=== PATIENT | female | born 1935 | race Caucasian/White ===

== ENCOUNTER 2016-03-13 09:39 | Outpatient (CLI) ==
[2016-03-13 09:48] LABS: BILIRUBIN,URINE Negative (NEGATIVE); KETONES,URINE Negative (NEGATIVE); LEUKOCYTE ESTERASE ,URINE 1+ (NEGATIVE); NITRITE,URINE Negative (NEGATIVE); PH,URINE 5.5 (5-9); PROTEIN,URINE Negative (NEGATIVE); URINE, BLOOD Negative (NEGATIVE)
[2016-03-13 09:49] LABS: ADD URINE MICROSCOPIC YES
[2016-03-13 09:50] LABS: BACTERIA,URINE TRACE (NOT PRESENT)
== END 2016-03-13 09:40 | disposition home or self-care (01) ==
LOC: NONPT 09:39
PROVIDERS: ATTEND Family Medicine
DX: R30.0 Dysuria (principal)
CPT/HCPCS: 81001; 87086

== ENCOUNTER 2016-05-23 10:24 | Outpatient (CLI) | payer OTHER ==
[2016-05-23 14:13] VITALS: BMI 24.8
== END 2016-05-23 10:25 | disposition home or self-care (01) ==
LOC: AMBL 10:24
PROVIDERS: ATTEND Internal Medicine
DX: R50.9 Fever, unspecified (principal); J06.9 Acute upper respiratory infection, unspecified; I10 Essential (primary) hypertension; G20 Parkinson's disease

== ENCOUNTER 2016-05-23 10:38 | Inpatient (IN) ==
[2016-05-23 11:43] LABS: BASOPHILS # (AUTO) 0.1 K/uL (0-0.2); BASOPHILS % (AUTO) 0.5 % (0.0-3.0); EOSINOPHILS # (AUTO) 0.1 K/ul (0.0-0.7); EOSINOPHILS % (AUTO) 1.1 % (0.0-7.0); HEMOGLOBIN 11.6 g/dl (12.0-16.0); IMMATURE GRANULOCYTE % (AUTO) 1.2 % (0.0-5.0); LYMPHOCYTES % (AUTO) 7.8 (10.0-50.0); MEAN CORPUSCULAR HEMOGLOBIN 28.4 pg (27.0-31.0); MEAN CORPUSCULAR HGB CONC 32.2 (31.8-35.4); MONOCYTES # (AUTO) 1.7 K/uL (0.4-2.0); MONOCYTES % (AUTO) 13.5 (0-10); NEUTROPHILS # (AUTO) 9.6 K/ul (2.0-6.9); NEUTROPHILS % (AUTO) 75.9; PLATELET COUNT 300 10^3/uL (140-440); RED BLOOD COUNT 4.09 10^6/ul (4.20-5.40); WHITE BLOOD COUNT 12.62 K/ul (4.6-10.2)
[2016-05-23 12:12] LABS: ABG PCO2 38.7 mmHg (35-45); ABG PH 7.439 (7.35-7.45)
[2016-05-23 12:13] LABS: ABG BASE EXCESS 2 (-2.0-2.0); ABG HCO3 26.2 (22.0-26.0); ABG TCO2 27 (22.0-28.0)
[2016-05-23 12:16] LABS: ALANINE AMINOTRANSFERASE 22 U/L (12-78); ALBUMIN 2.3 g/dL (3.4-5.0); ALBUMIN/GLOBULIN RATIO 0.41; ALKALINE PHOSPHATASE 90 U/L (53-141); ANION GAP 12.7; ASPARTATE AMINO TRANSFERASE 34 U/L (15-37); BILIRUBIN,TOTAL 0.36 mg/dL (0.00-1.20); BLOOD UREA NITROGEN 32 mg/dL (7-18); BUN/CREATININE RATIO 20.12; CALCIUM 9.6 mg/dL (8.2-10.2); CARBON DIOXIDE 27 mmol/L (23-31); CHLORIDE 100 mmol/L (98-107); CREATININE 1.59 mg/dL (0.60-1.30); GLUCOSE 134 mg/dL (82-115); POTASSIUM 4.7 mmol/L (3.5-5.10); SODIUM 135 mmol/L (136-145); TOTAL PROTEIN 7.9 g/dL (5.8-8.1)
[2016-05-23 12:17] LABS: CREATINE KINASE 1440 U/L
[2016-05-23 12:18] LABS: CREATINE KINASE MB 2.2 ng/ml (0.0-3.6)
--- NOTE | 2016-05-23 12:18 | CT ---
EXAM: CT of the abdomen pelvis without contrast History: Abdominal pain. Comparison: Chest CT 05/23/2016 Technique: Multiplanar CT images through the abdomen pelvis were obtained without the administratio n of IV contrast. Findings: Bibasilar lung infiltrates and micronodules. Please see dedicated chest CT done on the day for additional details. Left hip arthroplasty hardware. Osteopenia. Partial sacralization of L5 on the right. Degenerative changes of the lumbar spine. Cholecystectomy clips. No focal liver or splenic lesions. Atherosclerotic vascular calcifications. No peripancreatic inflammation. No renal stones and no hydronephrosis. Unremarkable. No bowel ob struction. Mild bladder distension but no bladder wall thickening. Moderate stool seen within the rectosigmoid colon. No perirectal inflammation. Uterus is not seen. No free air and no ascites. Impression: 1. No acute intra-abdominal or pelvic process. 2. Moderate stool within the rectosigmoid colon. No bowel obstruction. 3. Bibasilar lung infiltrates and micronodules. Please see dedicated chest CT done on the same day for additional details.
--- NOTE | 2016-05-23 12:23 | CT ---
EXAM: CT chest without contrast HISTORY: Cough COMPARISON: None TECHNIQUE: CT chest performed without intravenous contrast. Coronal and sagittal reformatted image s obtained. FINDINGS: Thyroid and thoracic inlet appear normal. Heart normal in size. No pericardial effusion . Evaluation for lymphadenopathy limited without contrast. No lymphadenopathy identified. Esophag us unremarkable. Aorta normal in caliber. Atherosclerosis. There are degenerative changes in the spine. Several vertebral body hemangiomas present. Central airway patent. Bilateral lower airway thickening associated with bilateral scattered centrilobular nodules. Small areas of mucous plugging noted. Additional right basilar consolidation versus less likely atelectasis. Left basilar atelect asis. Granulomatous calcification. Several noncalcified pulmonary nodules. For example. 0.7 nodule left lung base image 46 and 0.5 cm pulmonary nodule right lung image 42. Please refer to separate report CT abdomen pelvis regarding findings in the upper abdomen. IMPRESSION: 1. Bilateral lower airway thickening with small areas of mucous plugging and bilateral centrilobula r nodules. Findings may be due to infectious/inflammatory bronchiolitis or possibly changes of aspi ration. Additionally, there is right basilar pneumonia versus less likely atelectasis. Mild left b asilar atelectasis. 2. Pulmonary nodules measuring up to 0.[address] chest follow-up is recommended in 3-6 months for r eevaluation
[2016-05-23 12:32] LABS: BILIRUBIN,URINE 1+ (NEGATIVE); KETONES,URINE Negative (NEGATIVE); LEUKOCYTE ESTERASE ,URINE Negative (NEGATIVE); NITRITE,URINE Negative (NEGATIVE); PROTEIN,URINE 1+ (NEGATIVE); URINE, BLOOD Trace-intact (NEGATIVE)
[2016-05-23 12:35] LABS: ADD URINE MICROSCOPIC YES
[2016-05-23] MEDS ORDERED: ROCEPHIN 1 GM in SODIUM CHLORIDE 50 ML IV STA (12:43)
--- NOTE | 2016-05-23 12:48 | ED.PDOC ---
General ED Provider: Dr. ZEV GORDON Chief Complaint: Shortness of Air Stated Complaint: short of air Time Seen by Physician: 10:46 Mode of Arrival: Ambulance Information Source: Family, [facility], EMT Exam Limitations: Clinical condition, Dementia Primary Care Provider: NATA LOTT Nursing and Triage Documentation Reviewed and Agree: Yes Respiratory Complaint Exam - Shortness of Air Complaint/Exam Onset/Duration: unknown Symptoms Are: Resolved Timing: Intermittent Initial Severity: Mild Current Severity: Mild Aggravating: Reports: None Alleviating: Reports: Spontaneous resolution Associated Signs and Symptoms: Reports: Cough. Denies: Wheezing, Chest pain with cough, Chest pain, Fever, Chills, Diaphoresis, Nasal congestion, Dizziness , Calf pain, Calf swelling, Edema, Rapid breathing, Labored breathing, Decreased intake History of Healthcare-Acquired Pneumonia: No Pulmonary Embolism Risk Factors: Reports: Bedrest Pseudomonas Risk Factors: Reports: None Tuberculosis Risk Factors: Reports: None Home Oxygen Use: No Recent Stress Test: No Recent Echo/LV Function: No Respiratory Distress: None Stridor Present: No Tracheal Deviation: No Subcutaneous Emphysema: No Accessory Muscle Use: No Retractions: Not Present Diminished Breath Sounds: No Prolonged Expiratory Phase: No Unable to Speak Full Sentences: No Fatigue: No Leg Swelling: No Olivier's Sign Present: No Grunting Respirations: No Kussmaul Respirations: No Differential Diagnoses: CHF, Pulmonary Edema, Pneumonia, Pneumothorax, Pulmonary Embolism, Bronchitis, URI Review of Systems - Review Of Systems Constitutional: Reports: Malaise, Weakness Eyes: Reports: No symptoms Ears, Nose, Mouth, Throat: Reports: No symptoms Respiratory: Reports: Cough Cardiac: Reports: No symptoms GI: Reports: No symptoms : Reports: No symptoms Musculoskeletal: Reports: No symptoms Skin: Reports: No symptoms Neurological: Reports: No symptoms Endocrine: Reports: No symptoms Hematologic/Lymphatic: Reports: No symptoms All Other Systems: Reviewed and Negative Past Medical History - Past Medical History Previously Healthy: No Endocrine: Reports: Hypothyroid Cardiovascular: Reports: Unknown Respiratory: Reports: Unknown Hematological: Reports: Unknown Gastrointestinal: Reports: Unknown Genitourinary: Reports: Unknown Neuro/Psych: Reports: Unknown Musculoskeletal: Reports: Unknown Cancer: Reports: None Last Menstrual Period: na - Surgical History General Surgical History: Reports: Unknown - Family History Family History: Reports: Unknown - Social History Smoking Status: Former smoker Hx Substance Use: Yes Alcohol Screening: None - Immunizations Tetanus Shot up to Date: Yes Physical Exam - Physical Exam Appearance: Ill-appearing Ill-appearing: Moderate Pain Distress: Moderate Eyes: IRASEMA, EOMI, Conjunctiva clear ENT: Dry mucosa Respiratory: Airway patent, Breath sounds clear, Breath sounds equal, Respirations nonlabored Cardiovascular: RRR, Pulses normal, No rub, No murmur GI/: Soft, Nontender, No masses, Bowel sounds normal, No Organomegaly Musculoskeletal: Normal strength, ROM intact, No edema, No calf tenderness Skin: Warm, Dry, Normal color Neurological: Sensation intact, Motor intact, Reflexes intact, Cranial nerves intact, Alert, Oriented Psychiatric: Affect appropriate, Mood appropriate Interpretation - Radiology Interpretation Radiology Interpretation By: Radiologist Radiology Results: Positive (nodule0.7 cm) Physician Notification - Case Discussed Physician Notified: esther Time of Notification: 12:49 Admit To: Inpatient Critical Care Note - Critical Care Note Total Time (mins): 0 Course - Course Hematology/Chemistry: 05/23/16 11:40 05/23/16 11:40 Orders, Labs, Meds: Lab Review 05/23/16 05/23/16 05/23/16 11:22 11:40 12:20 WBC 12.62 H RBC 4.09 L Hgb 11.6 L Hct 36.0 L MCV 88.0 MCH 28.4 MCHC 32.2 RDW Coeff of Melania 15.4 H Plt Count 300 Immature Gran % (Auto) 1.2 Neut % (Auto) 75.9 Lymph % (Auto) 7.8 L [place] % (Auto) 13.5 H Eos % (Auto) 1.1 Baso % (Auto) 0.5 Immature Gran # (Auto) 0.2 Neut # 9.6 H Lymph # 1.0 [place] # 1.7 Eos # 0.1 Baso # 0.1 D-Dimer (Manual) 7846.14 Puncture Site Rrad O2 Saturation 92.0 L ABG pH 7.439 ABG pCO2 38.7 ABG pO2 60.0 L ABG HCO3 26.2 H ABG Total CO2 27 ABG Base Excess 2 Tristan Test + FiO2 % 21.0 Sodium 135 L Potassium 4.7 Chloride 100 Carbon Dioxide 27 Anion Gap 12.7 BUN 32 H Creatinine 1.59 H Estimated GFR (MDRD) 31.00 BUN/Creatinine Ratio 20.12 Glucose 134 H Lactic Acid 10.9 Calcium 9.6 Total Bilirubin 0.36 AST 34 ALT 22 Alkaline Phosphatase 90 Total Creatine Kinase 1440 CK-MB (CK-2) 2.2 CK-MB (CK-2) % 0.50789 Troponin I < 0.0100 Total Protein 7.9 Albumin 2.3 L Globulin 5.6 Albumin/Globulin Ratio 0.41 Urine Color Yellow Urine Clarity Slightly Urine pH 5.0 Ur Specific Elizabeth >=1.030 Urine Protein 1+ Urine Glucose (UA) Negative Urine Ketones Negative Urine Blood Trace-intact Urine Nitrite Negative Urine Bilirubin 1+ Urine Urobilinogen 0.2 Ur Leukocyte Esterase Negative Urine Microscopic RBC 2-5 Ur Squamous Epith Cells 5-10 Orders Category Date Time Status ADMIT PATIENT INPATIENT .TO [facility] (MONITORED BED) ADMISSION 05/23/16 12: 40 Ordered ABG DRAW REQUEST Stat CARDIO 05/23/16 11:22 Completed EKG-(ED ONLY) Stat CARDIO 05/23/16 11:49 Completed EKG-(IP & OP ONLY) DAILY CARDIO 05/24/16 06:00 Ordered EKG-(IP & OP ONLY) DAILY CARDIO 05/25/16 06:00 Ordered EKG-(IP & OP ONLY) DAILY CARDIO 05/26/16 06:00 Ordered OXYGEN Routine CARDIO 05/23/16 12:41 Ordered ACTIVITY .Complete BR CARE 05/23/16 12:40 Ordered INTAKE & OUTPUT Q8HR CARE 05/23/16 12:40 Ordered TELEMETRY MONITORING TELE CARE 05/23/16 12:41 Ordered VITAL SIGNS Q8HR CARE 05/23/16 12:40 Ordered REGULAR DIET DIETARY 05/23/16 Lunch Ordered ABG Stat LAB 05/23/16 11:22 Completed BLOOD CULTURE Stat LAB 05/23/16 11:40 Received CBC W/ AUTO DIFF DAILY@0600 LAB 05/24/16 06:00 Ordered CBC W/ AUTO DIFF DAILY@0600 LAB 05/25/16 06:00 Ordered CBC W/ AUTO DIFF DAILY@0600 LAB 05/26/16 06:00 Ordered CBC W/ AUTO DIFF DAILY@0600 LAB 05/27/16 06:00 Ordered CBC W/ AUTO DIFF DAILY@0600 LAB 05/28/16 06:00 Ordered CBC W/ AUTO DIFF DAILY@0600 LAB 05/29/16 06:00 Ordered CBC W/ AUTO DIFF DAILY@0600 LAB 05/30/16 06:00 Ordered CBC W/ AUTO DIFF DAILY@0600 LAB 05/31/16 06:00 Ordered CBC W/ AUTO DIFF DAILY@0600 LAB 06/01/16 06:00 Ordered CBC W/ AUTO DIFF DAILY@0600 LAB 06/02/16 06:00 Ordered CBC W/ AUTO DIFF DAILY@0600 LAB 06/03/16 06:00 Ordered CBC W/ AUTO DIFF DAILY@0600 LAB 06/04/16 06:00 Ordered CBC W/ AUTO DIFF DAILY@0600 LAB 06/05/16 06:00 Ordered CBC W/ AUTO DIFF DAILY@0600 LAB 06/06/16 06:00 Ordered CBC W/ AUTO DIFF DAILY@0600 LAB 06/07/16 06:00 Ordered CBC W/ AUTO DIFF DAILY@0600 LAB 06/08/16 06:00 Ordered CBC W/ AUTO DIFF DAILY@0600 LAB 06/09/16 06:00 Ordered CBC W/ AUTO DIFF DAILY@0600 LAB 06/10/16 06:00 Ordered CBC W/ AUTO DIFF DAILY@0600 LAB 06/11/16 06:00 Ordered CBC W/ AUTO DIFF DAILY@0600 LAB 06/12/16 06:00 Ordered CBC W/ AUTO DIFF Stat LAB 05/23/16 11:40 Completed COMPREHENSIVE METABOLIC PANEL DAILY@0600 LAB 05/24/16 06:00 Ordered COMPREHENSIVE METABOLIC PANEL DAILY@0600 LAB 05/25/16 06:00 Ordered COMPREHENSIVE METABOLIC PANEL DAILY@0600 LAB 05/26/16 06:00 Ordered COMPREHENSIVE METABOLIC PANEL DAILY@0600 LAB 05/27/16 06:00 Ordered COMPREHENSIVE METABOLIC PANEL DAILY@0600 LAB 05/28/16 06:00 Ordered COMPREHENSIVE METABOLIC PANEL DAILY@0600 LAB 05/29/16 06:00 Ordered COMPREHENSIVE METABOLIC PANEL DAILY@0600 LAB 05/30/16 06:00 Ordered COMPREHENSIVE METABOLIC PANEL DAILY@0600 LAB 05/31/16 06:00 Ordered COMPREHENSIVE METABOLIC PANEL DAILY@0600 LAB 06/01/16 06:00 Ordered COMPREHENSIVE METABOLIC PANEL DAILY@0600 LAB 06/02/16 06:00 Ordered COMPREHENSIVE METABOLIC PANEL DAILY@0600 LAB 06/03/16 06:00 Ordered COMPREHENSIVE METABOLIC PANEL DAILY@0600 LAB 06/04/16 06:00 Ordered COMPREHENSIVE METABOLIC PANEL DAILY@0600 LAB 06/05/16 06:00 Ordered COMPREHENSIVE METABOLIC PANEL DAILY@0600 LAB 06/06/16 06:00 Ordered COMPREHENSIVE METABOLIC PANEL DAILY@0600 LAB 06/07/16 06:00 Ordered COMPREHENSIVE METABOLIC PANEL DAILY@0600 LAB 06/08/16 06:00 Ordered COMPREHENSIVE METABOLIC PANEL DAILY@0600 LAB 06/09/16 06:00 Ordered COMPREHENSIVE METABOLIC PANEL DAILY@0600 LAB 06/10/16 06:00 Ordered COMPREHENSIVE METABOLIC PANEL DAILY@0600 LAB 06/11/16 06:00 Ordered COMPREHENSIVE METABOLIC PANEL DAILY@0600 LAB 06/12/16 06:00 Ordered COMPREHENSIVE METABOLIC PANEL Stat LAB 05/23/16 11:40 Completed CREATINE KINASE Q8H LAB 05/23/16 18:45 Ordered CREATINE KINASE Q8H LAB 05/24/16 02:45 Ordered CREATINE KINASE Stat LAB 05/23/16 11:40 Completed D-DIMER Stat LAB 05/23/16 11:40 Completed LACTIC ACID Stat LAB 05/23/16 11:40 Completed TROPONIN I Q8H LAB 05/23/16 18:45 Ordered TROPONIN I Q8H LAB 05/24/16 02:45 Ordered TROPONIN I Stat LAB 05/23/16 11:40 Completed URINALYSIS C & S IF INDICATED Stat LAB 05/23/16 12:20 Completed Aspirin [Aspirin Chewable] MEDS 05/24/16 09:00 Ordered 81 mg PO DAILY Ceftriaxone Sodium [Rocephin] 1 gm MEDS 05/23/16 12:43 Ordered 0.9 % Sodium Chloride [Sodium Chloride] 50 ml IV ONCE Clorazepate Dipotassium [Clorazepate Dipotassium] MEDS 05/23/16 21:00 Ordered 7.5 mg PO BID Cyclosporine MEDS 05/23/16 21:00 Ordered 1 each OP BID Levofloxacin [Levaquin] MEDS 05/24/16 09:00 Ordered 250 mg PO DAILY Levothyroxine Sodium [Synthroid] MEDS 05/24/16 09:00 Ordered 75 mcg PO DAILY Quetiapine Fumarate [Seroquel] MEDS 05/23/16 21:00 Ordered 50 mg PO BID Sodium Chloride 0.9% [Sodium Chloride] 1,000 ml MEDS 05/23/16 13:00 Ordered IV 75 mls/hr Sodium Chloride 0.9% [Sodium Chloride] 1,200 ml MEDS 05/23/16 12:43 Ordered IV 100 mls/hr Timolol Maleate 0.5% [Timoptic 0.5% Opth] MEDS 05/24/16 09:00 Ordered 1 drop OP DAILY Verapamil HCl [Verapamil HCl] MEDS 05/24/16 09:00 Ordered [address] ABDOMEN/PELVIS WO CONTRAST Stat RADS 05/23/16 11:[address] CHEST W/O CONTRAST Stat RADS 05/23/16 11:19 Completed Medications Generic Name Dose Route Start Last Admin Trade Name Valentina PRN Reason Stop Dose Admin Aspirin 81 mg 05/24/16 09:00 Aspirin Chewable PO DAILY DEBORAH Sodium Chloride 1,000 mls @ 75 mls/hr 05/23/16 13:00 Sodium Chloride IV .[id number] DEBORAH Ceftriaxone Sodium 1 gm/ 50 mls @ 75 mls/hr 05/23/16 12:43 Sodium Chloride IV 05/23/16 13:22 ONCE STA Sodium Chloride 1,200 mls @ 100 mls/hr 05/23/16 12:43 Sodium Chloride IV 05/24/16 00:42 .Q12H STA Levothyroxine Sodium 75 mcg 05/24/16 09:00 Synthroid PO DAILY DEBORAH Non-Formulary Medication 7.5 mg 05/23/16 21:00 Clorazepate Dipotassium [Clorazepate Dipotassium] PO BID DEBORAH Non-Formulary Medication 1 each 05/23/16 21:00 Cyclosporine OP BID DEBORAH Non-Formulary Medication 50 mg 05/23/16 21:00 Quetiapine Fumarate [Seroquel] PO BID DEBORAH Non-Formulary Medication 120 mg 05/24/16 09:00 Verapamil Hcl [Verapamil Hcl] PO DAILY DEBORAH Non-Formulary Medication 250 mg 05/24/16 09:00 Levofloxacin [Levaquin] PO DAILY DEBORAH Timolol Maleate 1 drop 05/24/16 09:00 Timoptic 0.5% Opth OP DAILY DEBORAH Vital Signs: Temp Pulse Resp BP Pulse Ox 05/23/16 10:39 99 F 88 20 101/71 92 L Departure - Departure Time of Disposition: 12:49 Disposition: ADMITTED INPATIENT Discharge Problem: Pneumonia, Dehydration Instructions: Pneumonia (ED) Condition: Good Pt referred to PMD for follow-up: Yes (admitt) Additional Instructions: Please call your Family Physician as soon as possible to schedule a follow-up appointment. Allergies/Adverse Reactions: Allergies codeine Adverse Reaction (Verified 05/23/16 10:54) modafinil [From Provigil] Adverse Reaction (Verified 05/23/16 10:54) Penicillins Adverse Reaction (Verified 05/23/16 10:54) Home Medications: Ambulatory Orders Acetaminophen [Mapap] 500 mg PO Q4HR PRN 05/23/16 Amantadine HCl [Amantadine] 100 mg PO DAILY 05/23/16 Aspirin 81 mg PO DAILY 05/23/16 Clorazepate Dipotassium 7.5 mg PO BID 05/23/16 Cyclosporine [Restasis] 1 each OP BID 05/23/16 Hydrocodone Bit/Acetaminophen [Denniston 7.5-325] 1 tab PO Q12HR PRN 05/23/16 Levofloxacin [Levaquin] 250 mg PO DAILY 05/23/16 Levothyroxine Sodium [Synthroid] 75 mcg PO DAILY 05/23/16 Magnesium Hydroxide [Milk of Magnesia] 30 ml PO DAILY 05/23/16 Multivitamin [Daily Multiple Vitamin] 1 each PO DAILY 05/23/16 Na Phos,M-B/Na Phos,Di-Ba [Fleet Enema] 118 ml RC DAILY 05/23/16 Nystatin [Nystop Powder] 1 applic TP Q8HR 05/23/16 Polyethylene Glycol 3350 [Miralax] 17 gm PO DAILY 05/23/16 Quetiapine Fumarate [Seroquel] 50 mg PO BID 05/23/16 Sennosides [Senokot] 8.6 mg PO DAILY PRN 05/23/16 Timolol Maleate 0.5% [Timoptic 0.5% Opth] 1 drop OP DAILY 05/23/16 Tramadol HCl 50 mg PO Q6HR PRN 05/23/16 Tramadol HCl 50 mg PO TID PRN 05/23/16 Verapamil HCl 120 mg PO DAILY 05/23/16 Disposition Discussed With: Patient, Family
[2016-05-23] MEDS ORDERED: SODIUM CHLORIDE 50 ML IV ONE (12:53)
[2016-05-23] MEDS ORDERED: ROCEPHIN ONE (12:53)
[2016-05-23 14:13] VITALS: BMI 24.8
[2016-05-23] MEDS: SODIUM CHLORIDE IV STA ×2 (15:21→22:40)
[2016-05-23] MEDS: SODIUM CHLORIDE 1,000 ML IV SCH (15:22)
[2016-05-23] MEDS: LOVENOX SUBCUT SCH (15:23)
--- NOTE | 2016-05-23 15:37 | DI ---
EXAM: CHEST FRONTAL VIEW HISTORY: Cough. COMPARISON: None FINDINGS: Normal heart size. Chronic-appearing interstitial accentuation without definite consolid ated pneumonia. A few indeterminate nodular opacities are seen over the lower right lung laterally measuring up to 0.65 cm. Patient had same day CT thorax, refer to report. No pleural fluid or vascul ar congestion. IMPRESSION: 1. No definite consolidated pneumonia identified radiographically. Right lung base nodules. See a o same day CT thorax report.
--- NOTE | 2016-05-23 15:49 | NM ---
EXAM: Lung perfusion study HISTORY: Elevated D-dimer COMPARISON: The frontal view of the chest of today shows no consolidation. Right lung base nodules TECHNIQUE: Patient was injected 5.3 mCi of technetium 99m labeled MAA intravenously. Perfusion imag es were obtained in multiple projections. Ventilation study could not be acquired on this patient. FINDINGS: There are multiple segmental and subsegmental perfusion defects bilaterally. IMPRESSION: This is incomplete study. Ventilation study could not be acquired on this patient. There are multiple small subsegmental and segmental perfusion defects bilaterally. Because of no ve ntilation imaging in this patient, Probability of pulmonary embolism is indeterminate . Recommend C T pulmonary angiogram.
[2016-05-23] MEDS ORDERED: VANCOMYCIN 1 GM in SODIUM CHLORIDE 250 ML IV ONE (16:30)
[2016-05-23] MEDS ORDERED: VANCOMYCIN 1 GM in SODIUM CHLORIDE 250 ML IV SCH (16:30)
[2016-05-23] MEDS: CALMOSEPTINE OINTMENT TP SCH ×2 (16:34→23:08)
[2016-05-23] MEDS ORDERED: TYLENOL PO PRN (17:19)
[2016-05-23] MEDS ORDERED: SENNA PO PRN (17:19)
[2016-05-23] MEDS ORDERED: ATIVAN IVP PRN (17:37)
[2016-05-23] MEDS: ULTRAM PO PRN (17:43)
--- NOTE | 2016-05-23 18:35 | RS.BEDDYS ---
Subjective Number of treatment sessions: 1 Date of Evaluation: 05/23/16 Date of Onset/Injury/Change in Status: 05/23/16 Treatment Diagnosis: Pnuemonia, dehydration Prior Level of Function.....Patient was independent with: Caregiving (Pt required caregiver assistance for ADLs. Pt fed self, but required verbal cues to initiate drinking and eating.) Current Level of Function: This 80 year old female was referred for speech therapy due to reports of coughing or choking with PO intake. Pt was admitted with dehydration and pnuemonia. Pt has hx of dementia and UTI's affecting cognitive function. Prior to hospitalization pt was consuming a regular diet texture with thin liquids. No hx of swallowing difficulty was reported. Current Diet: Regular diet with thin liquids. SKINNER PELTS downgraded to puree diet texture with nectar thick liquids via straw. Current Subjective/complaints:: Pt lethargic and only reported pain in hips. Pt' s daughter present and stated she had been coughing with PO intake for approximately one week. Pt had not got out of bed in two days and was eating and drinking less than 25% of meals. Daughter was concerned pt would choke on water. Medical History Comments:: CHF, Pnuemonia, UTI, Dementia, weight loss of 50 plus pounds in less than 1 year. Hx Home Medications: Refer to medication list for current medications. Patient's Goals: Pt did not state any goals. Daughter wants pt to have safest and least restrictive diet texture. General Information - General Denture Type: Full- Upper & Lower (Pt edentulous for evaluation. Pt requested to have dentures out of mouth.) Patient Orientation: Person Ability to Follow Directions: Good Oral Expression Ability: Moderate Impairment - Voice Voice Quality: Weak Oral-Facial Assessment - Face Facial Symmetry: Symmetrical Facial Movement: Controlled - Dental/Labial Lip Protrusion: Reduced ROM Lip Retraction: Reduced ROM Puff Cheeks: Reduced Strength - Lingual Protrusion: Weak Retraction: Weak Tip Lateralization: Weak Repeated Tip Lateralization: Weak Tip Elevation: Weak Repeated Tip Elevation: Weak Food Presentation - Solids Food Presented: Pureed (1/2 teaspoon size bite over three trials.) Behaviors/Comments: Adequate labial seal with clearance of puree from spoon. Pt required verbal cues for each trial. Minimal delay in swallow response. Minimal oral stasis. - Liquids Liquid Presented: Thin (1/4 teaspoon via spoon) Behaviors/Comments: SKINNER PELTS presented 1/4 teaspoon via spoon and provided verbal and tactile cues. Pt with poor labial seal and immediate cough, wet and gurly voice. 1-2 minute recovery period with weak vocal quality and increased respirations. 1/8 teaspoon trialed ten minutes post recovery, pt with 3 second swallow delay and audible swallow, no overt s/s of aspiration. Liquid Presented: Waterflow (1/2 teaspoon and straw assisted.) Behaviors/Comments: SKINNER PELTS presented nectar via 1/2 teaspoon. Pt had 2-3 second swallow delay with 1x throat clear. straw presented and pt had no overt s/s of aspiration over three trials. With 2 consecutive straw drinks, pt had delayed cough. - Recommendations: Dysphagia Evaluation Dietary Recommendations: Dysphagia Pureed, Waterflow-thick liquids Comments:: Pt to have puree diet texture with nectar thick liquids with caregiver assistance. Pt can safely consume nectar thick liquids with caregiver assistance, via straw placed midline. 1/2 teaspoon size puree bites and alternate drinks every 2-3 bites or as requested. All medications to be crushed in applesauce or pudding. Follow safe swallow strategies and complete oral care as needed. Dysphagia Swallow Precautions/Strategies: Sitting Upright (90 deg), Liquids from Straw, Small Bites and Sips Comments:: Straw assisted drinks, one drink at a time and place straw midline. 1 /2 teaspoon size bites of puree. - Summary Dysphagia Evaluation Summary: Pt presents with oropharyngeal dysphagia as characterized by swallow delay and weak lingual structure. Pt demonstrates overt s/s of aspiration with thin liquids. Pt has moderate weakness with oral motor movements. Laryngeal palpation revealed adequate elevation, however pt required multiple attempts to initiate swallow. Pt oral cavity dry and will require oral care between meals. Pt with minimal risk for aspiration and/or penetration with nectar thick liquids. Further Therapy Indicated?: Yes Rehab Potential: Good (Due to responsiveness with verbal and visual cues. Previous diet textue. Caregiver support) Functional Reporting G Codes: Current CL Goal CJ Severity Impairment Rationale: Pt downgraded to puree diet texture with nectar thick liquids. Short Term Goals Problem: Swallow response Goal #1: Thermal/tactile stimulation over 5 trials for 1-2 second swallow response Goal to be met by: 05/30/16 Problem: Swallow Goal #2: Pt to tolerate 5 trials of thin liquids via straw/spoon. Goal to be met by: 05/30/16 Problem: Pt tolerates 5 trials of mechanical soft diet texture. Goal to be met by: 05/30/16 [employer] Goals Problem: Swallow response Goal #1: Pt to demonstrate swallow response of 1-2 seconds with/without liquids. Goal to be met by: 05/30/16 Problem: Swallow Goal #2: Pt tolerates thin liquids/mech soft without overt s/s of aspiration. Goal to be met by: 05/30/16 Plan Duration of Treatment: 1 Week Frequency of Treatment: 1-2x a week Anticipated Discharge Destination: [facility]
[2016-05-23 19:01] LABS: CREATINE KINASE 1301 U/L
[2016-05-23] MEDS: SEROQUEL PO SCH (20:51)
[2016-05-23] MEDS: NON-FORMULARY MEDICATION (Cyclosporine 1 EACH) OP SCH (20:57)
[2016-05-23] MEDS ORDERED: NON-FORMULARY MEDICATION (Quetiapine Fumarate [Seroquel] 50 MG) PO SCH ×21 (21:00)
[2016-05-23] MEDS ORDERED: CLORAZEPATE DIPOTASSIUM 7.5 MG PO SCH ×2 (21:00)
[2016-05-23] MEDS: NYSTOP POWDER TP SCH (23:09)
[2016-05-24 03:51] LABS: BASOPHILS # (AUTO) 0.1 K/uL (0-0.2); BASOPHILS % (AUTO) 0.5 % (0.0-3.0); EOSINOPHILS # (AUTO) 0.3 K/ul (0.0-0.7); EOSINOPHILS % (AUTO) 3.1 % (0.0-7.0); IMMATURE GRANULOCYTE % (AUTO) 1.3 % (0.0-5.0); LYMPHOCYTES # (AUTO) 1.1 K/uL (0.60-3.4); LYMPHOCYTES % (AUTO) 10.8 (10.0-50.0); MEAN CORPUSCULAR HEMOGLOBIN 28.2 pg (27.0-31.0); MEAN CORPUSCULAR HGB CONC 31.3 (31.8-35.4); MEAN CORPUSCULAR VOLUME 90.4 fl (81.0-99.0); MONOCYTES # (AUTO) 1.1 K/uL (0.4-2.0); MONOCYTES % (AUTO) 11.1 (0-10); NEUTROPHILS # (AUTO) 7.2 K/ul (2.0-6.9); NEUTROPHILS % (AUTO) 73.2; PLATELET COUNT 248 10^3/uL (140-440); RED BLOOD COUNT 3.54 10^6/ul (4.20-5.40); WHITE BLOOD COUNT 9.79 K/ul (4.6-10.2)
[2016-05-24 04:20] LABS: ALANINE AMINOTRANSFERASE 21 U/L (12-78); ALBUMIN/GLOBULIN RATIO 0.42; ALKALINE PHOSPHATASE 78 U/L (53-141); ANION GAP 12.4; ASPARTATE AMINO TRANSFERASE 30 U/L (15-37); BILIRUBIN,TOTAL 0.28 mg/dL (0.00-1.20); BLOOD UREA NITROGEN 33 mg/dL (7-18); BUN/CREATININE RATIO 27.04; CALCIUM 9.1 mg/dL (8.2-10.2); CARBON DIOXIDE 27 mmol/L (23-31); CHLORIDE 104 mmol/L (98-107); CREATININE 1.22 mg/dL (0.60-1.30); GLUCOSE 104 mg/dL (82-115); POTASSIUM 4.4 mmol/L (3.5-5.10); SODIUM 139 mmol/L (136-145); TOTAL PROTEIN 6.8 g/dL (5.8-8.1)
[2016-05-24 04:23] LABS: CREATINE KINASE 925 U/L; CREATINE KINASE MB 1.4 ng/ml (0.0-3.6)
[2016-05-24] MEDS: SYNTHROID PO SCH (05:49)
[2016-05-24] MEDS: NYSTOP POWDER TP SCH ×3 (06:16→20:30)
[2016-05-24] MEDS: MILK OF MAGNESIA PO SCH (08:31)
[2016-05-24] MEDS: ASPIRIN CHEWABLE PO SCH (08:32)
[2016-05-24] MEDS: CALAN SR PO SCH (08:32)
[2016-05-24] MEDS: MULTIVITAMIN PO SCH (08:32)
[2016-05-24] MEDS: SEROQUEL PO SCH ×2 (08:32→20:28)
[2016-05-24] MEDS: MIRALAX PO SCH (08:32)
[2016-05-24] MEDS: LOVENOX SUBCUT SCH (08:33)
[2016-05-24] MEDS: TIMOPTIC 0.5% OPTH OP SCH (08:33)
[2016-05-24] MEDS: ROCEPHIN 1 GM in SODIUM CHLORIDE 50 ML IV SCH (08:34)
[2016-05-24] MEDS ORDERED: NON-FORMULARY MEDICATION (Amantadine Hcl [Amantadine] 100 MG) PO SCH ×22 (09:00)
[2016-05-24] MEDS ORDERED: MULTIVITAMIN PO SCH (09:00)
[2016-05-24] MEDS ORDERED: VERAPAMIL HCL 120 MG PO SCH (09:00)
[2016-05-24] MEDS ORDERED: LEVOFLOXACIN 250 MG PO SCH (09:00)
[2016-05-24] MEDS: VANCOMYCIN 500 MG in SODIUM CHLORIDE 100 ML IV SCH (09:43)
[2016-05-24] MEDS: SYMMETREL PO SCH (09:43)
[2016-05-24] MEDS: CALMOSEPTINE OINTMENT TP SCH ×4 (09:44→20:30)
[2016-05-24] MEDS: NON-FORMULARY MEDICATION (Cyclosporine 1 EACH) OP SCH ×2 (09:45→21:11)
[2016-05-24] MEDS: SODIUM CHLORIDE 1,000 ML IV SCH (13:02)
[2016-05-24] MEDS: NORCO 7.5-325 PO PRN (13:09)
[2016-05-24] MEDS: TORADOL IVP PRN (14:14)
[2016-05-25] MEDS: SODIUM CHLORIDE 1,000 ML IV SCH ×2 (02:13→15:44)
[2016-05-25 04:57] LABS: BASOPHILS # (AUTO) 0.1 K/uL (0-0.2); BASOPHILS % (AUTO) 0.9 % (0.0-3.0); EOSINOPHILS # (AUTO) 0.5 K/ul (0.0-0.7); EOSINOPHILS % (AUTO) 7.2 % (0.0-7.0); HEMATOCRIT 30.8 % (37.0-47.0); HEMOGLOBIN 9.4 g/dl (12.0-16.0); IMMATURE GRANULOCYTE % (AUTO) 1.6 % (0.0-5.0); LYMPHOCYTES # (AUTO) 1.1 K/uL (0.60-3.4); LYMPHOCYTES % (AUTO) 15.5 (10.0-50.0); MEAN CORPUSCULAR HEMOGLOBIN 28.3 pg (27.0-31.0); MEAN CORPUSCULAR HGB CONC 30.5 (31.8-35.4); MEAN CORPUSCULAR VOLUME 92.8 fl (81.0-99.0); MONOCYTES # (AUTO) 0.6 K/uL (0.4-2.0); MONOCYTES % (AUTO) 9.3 (0-10); NEUTROPHILS # (AUTO) 4.5 K/ul (2.0-6.9); NEUTROPHILS % (AUTO) 65.5; PLATELET COUNT 242 10^3/uL (140-440); RED BLOOD COUNT 3.32 10^6/ul (4.20-5.40); WHITE BLOOD COUNT 6.79 K/ul (4.6-10.2)
[2016-05-25 05:17] LABS: ALBUMIN 1.8 g/dL (3.4-5.0); ALBUMIN/GLOBULIN RATIO 0.41; BILIRUBIN,TOTAL 0.2 mg/dL (0.00-1.20); BUN/CREATININE RATIO 33.33; CALCIUM 9.1 mg/dL (8.2-10.2); CREATININE 0.99 mg/dL (0.60-1.30); TOTAL PROTEIN 6.2 g/dL (5.8-8.1)
[2016-05-25] MEDS: SYNTHROID PO SCH (06:33)
[2016-05-25] MEDS: NYSTOP POWDER TP SCH ×3 (06:54→20:22)
[2016-05-25] MEDS: ROCEPHIN 1 GM in SODIUM CHLORIDE 50 ML IV SCH (08:28)
[2016-05-25] MEDS: TORADOL IVP PRN (09:11)
[2016-05-25] MEDS: MILK OF MAGNESIA PO SCH (09:15)
[2016-05-25] MEDS: ASPIRIN CHEWABLE PO SCH (09:16)
[2016-05-25] MEDS: SEROQUEL PO SCH ×2 (09:16→20:22)
[2016-05-25] MEDS: CALAN SR PO SCH (09:16)
[2016-05-25] MEDS: TIMOPTIC 0.5% OPTH OP SCH (09:16)
[2016-05-25] MEDS: MIRALAX PO SCH (09:17)
[2016-05-25] MEDS: LOVENOX SUBCUT SCH (09:17)
[2016-05-25] MEDS: MULTIVITAMIN PO SCH (09:17)
[2016-05-25] MEDS: SYMMETREL PO SCH (09:17)
[2016-05-25] MEDS: CALMOSEPTINE OINTMENT TP SCH ×4 (09:18→20:22)
[2016-05-25] MEDS: NON-FORMULARY MEDICATION (Cyclosporine 1 EACH) OP SCH ×2 (09:19→20:38)
[2016-05-25] MEDS: VANCOMYCIN 500 MG in SODIUM CHLORIDE 100 ML IV SCH (09:32)
[2016-05-25] MEDS: DUONEB NEB SCH (18:40)
[2016-05-25] MEDS: ULTRAM PO PRN (21:03)
[2016-05-26] MEDS: NORCO 7.5-325 PO PRN (02:25)
[2016-05-26 04:58] LABS: BASOPHILS % (AUTO) 0.6 % (0.0-3.0); EOSINOPHILS # (AUTO) 0.3 K/ul (0.0-0.7); EOSINOPHILS % (AUTO) 5.3 % (0.0-7.0); HEMATOCRIT 30.5 % (37.0-47.0); HEMOGLOBIN 9.5 g/dl (12.0-16.0); IMMATURE GRANULOCYTE % (AUTO) 0.8 % (0.0-5.0); LYMPHOCYTES # (AUTO) 0.7 K/uL (0.60-3.4); LYMPHOCYTES % (AUTO) 11.7 (10.0-50.0); MEAN CORPUSCULAR HEMOGLOBIN 28.4 pg (27.0-31.0); MEAN CORPUSCULAR HGB CONC 31.1 (31.8-35.4); MONOCYTES # (AUTO) 0.6 K/uL (0.4-2.0); MONOCYTES % (AUTO) 9.3 (0-10); NEUTROPHILS # (AUTO) 4.5 K/ul (2.0-6.9); NEUTROPHILS % (AUTO) 72.3; PLATELET COUNT 269 10^3/uL (140-440); RED BLOOD COUNT 3.35 10^6/ul (4.20-5.40); WHITE BLOOD COUNT 6.25 K/ul (4.6-10.2)
[2016-05-26] MEDS: DUONEB NEB SCH (05:00)
[2016-05-26] MEDS: NYSTOP POWDER TP SCH ×2 (05:12→13:21)
[2016-05-26 05:28] LABS: ALBUMIN 1.9 g/dL (3.4-5.0); ALBUMIN/GLOBULIN RATIO 0.45; ANION GAP 11.2; BILIRUBIN,TOTAL 0.24 mg/dL (0.00-1.20); BUN/CREATININE RATIO 30.26; CALCIUM 9.1 mg/dL (8.2-10.2); CREATININE 0.76 mg/dL (0.60-1.30); POTASSIUM 4.2 mmol/L (3.5-5.10); TOTAL PROTEIN 6.1 g/dL (5.8-8.1)
[2016-05-26] MEDS: SYNTHROID PO SCH (05:51)
[2016-05-26] MEDS: SYMMETREL PO SCH (08:55)
[2016-05-26] MEDS: ASPIRIN CHEWABLE PO SCH (08:56)
[2016-05-26] MEDS: MULTIVITAMIN PO SCH (08:56)
[2016-05-26] MEDS: SEROQUEL PO SCH (08:56)
[2016-05-26] MEDS: CALAN SR PO SCH (08:56)
[2016-05-26] MEDS: TIMOPTIC 0.5% OPTH OP SCH (08:57)
[2016-05-26] MEDS: LOVENOX SUBCUT SCH (08:57)
[2016-05-26] MEDS: CALMOSEPTINE OINTMENT TP SCH ×2 (08:58→13:21)
[2016-05-26] MEDS: NON-FORMULARY MEDICATION (Cyclosporine 1 EACH) OP SCH (08:59)
[2016-05-26] MEDS: MILK OF MAGNESIA PO SCH (08:59)
[2016-05-26] MEDS: MIRALAX PO SCH (08:59)
[2016-05-26] MEDS: ROCEPHIN 1 GM in SODIUM CHLORIDE 50 ML IV SCH (09:59)
--- NOTE | 2016-05-26 12:02 | CM.DICTOOL ---
ADMISSION: 05/23/16 12:50 DISCHARGE: 05/26/16 DISCHARGE TO [facility] DATE OF SERVICE: 05/26/16 FINAL DIAGNOSIS PNEUMONIA (ACUTE) DEHYDRATION (ACUTE) DYSPHAGIA, OROPHARYNGEAL STAGE (ACUTE) ESSENTIAL HYPERTENSION HYPOTHYROIDISM GASTRIC ULCER PARKINSON'S DISEASE METABOLIC ENCEPHALOPATHY BIPOLAR DISORDER GENERALIZED ANXIETY GLAUCOMA LAST VITALS Temp Pulse Resp BP Pulse Ox 97.7 F 91 H 16 113/65 98 05/26/16 05:41 05/26/16 05:41 05/26/16 05:41 05/26/16 05:41 05/26/16 05:41 ACTIVE MEDICATIONS Acetaminophen (Tylenol) 500 mg PO Q4HR PRN PRN Reason: Mild Pain Acetaminophen/Hydrocodone Bitart (Estelline 7.5-325) 1 tab PO Q12HR PRN PRN Reason: Severe Pain Last Admin: 05/26/16 02:25 Dose: 1 tab Albuterol/Ipratropium (Duoneb) 1 vial NEB RTBID [facility] ([facility]) Last Admin: 05/26/16 05:00 Dose: 1 vial Amantadine HCl (Symmetrel) 100 mg PO DAILY [facility] Aspirin (Aspirin Chewable) 81 mg PO DAILYWM [facility] Last Admin: 05/26/16 08:56 Dose: 81 mg Clorazepate Dipotassium 7.5 mg PO BID Levothyroxine Sodium (Synthroid) 75 mcg PO QDAC [facility] Last Admin: 05/26/16 05:51 Dose: 75 mcg Magnesium Hydroxide (Milk Of Magnesia) 30 ml PO DAILY [facility] Last Admin: 05/26/16 08:59 Dose: Not Given Multivitamins (Multivitamin) 1 cap PO DAILY [facility] Last Admin: 05/26/16 08:56 Dose: 1 cap Na Phos, M-B/Na Phos, Di-Ba (Fleet Enema) 118 ml RC DAILY Cyclosporine 1 each OP BID [facility] Last Admin: 05/26/16 08:59 Dose: Not Given Nystatin (Nystop Powder) 1 applic TP Q8HR [facility] Last Admin: 05/26/16 05:12 Dose: 1 applic Polyethylene Glycol (Miralax) 17 gm PO DAILY [facility] Last Admin: 05/26/16 08:59 Dose: Not Given Quetiapine Fumarate (Seroquel) 50 mg PO BID [facility] Last Admin: 05/26/16 08:56 Dose: 50 mg Sennosides (Senna) 8.6 mg PO DAILY PRN PRN Reason: Constipation Timolol Maleate (Timoptic 0.5% Opth) 1 drop OP DAILY [facility] Last Admin: 05/26/16 08:57 Dose: 1 drop Tramadol HCl (Ultram) 50 mg PO Q6HR PRN PRN Reason: MODERATE PAIN Last Admin: 05/25/16 21:03 Dose: 50 mg Verapamil HCl (Calan Sr) 120 mg PO DAILY [facility] Last Admin: 05/26/16 08:56 Dose: 120 mg ALLERGIES codeine Adverse Reaction (Verified 05/23/16 10:54) modafinil [From Provigil] Adverse Reaction (Verified 05/23/16 10:54) Penicillins Adverse Reaction (Verified 05/23/16 10:54) NEW PRESCRIPTIONS: KEFLEX 500 MG PO Q12 HOURS X 7 (SEVEN) DAYS MUCINEX 600 MG PO BID X 10 (TEN) DAYS DUONEBS Q8 HOURS SMOKING: NONSMOKER LAB REVIEW: 05/26/16 04:12 05/26/16 04:12 05/26/16 04:12: WBC 6.25, RBC 3.35 L, Hgb 9.5 L, Hct 30.5 L, MCV 91.0, MCH 28.4 , MCHC 31.1 L, RDW Coeff of Melania 15.3 H, Plt Count 269, Immature Gran % (Auto) 0.8, Neut % (Auto) 72.3, Lymph % (Auto) 11.7, [place] % (Auto) 9.3, Eos % (Auto) 5.3, Baso % (Auto) 0.6, Immature Gran # (Auto) 0.1, Neut # 4.5, Lymph # 0.7, [place] # 0.6, Eos # 0.3, Baso # 0.0, Sodium 145, Potassium 4.2, Chloride 111 H, Carbon Dioxide 27, Anion Gap 11.2, BUN 23 H, Creatinine 0.76, Estimated GFR ( MDRD) 73.00, BUN/Creatinine Ratio 30.26, Glucose 90, Calcium 9.1, Total Bilirubin 0.24, AST 34, ALT 22, Alkaline Phosphatase 74, Total Protein 6.1, Albumin 1.9 L, Globulin 4.2, Albumin/Globulin Ratio 0.45 PLAN: DISCHARGE TO [facility] TODAY DR. LOTT WILL FOLLOW THE PATIENT DURING USUAL PRISON ROUNDS RESUME PRISON MEDICATIONS PER LIST PROVIDED BY THE NURSING STAFF NEW MEDICATIONS: KEFLEX 500 MG PO Q12 HOURS X 7 (SEVEN) DAYS MUCINEX 600 MG PO BID X 10 (TEN) DAYS DUONEBS Q8 HOURS ACTIVITY: MAY PARTICIPATE IN PRISON ACTIVITY PROGRAM TOLERATION UP TO DINING ROOM FOR ALL MEALS PT/OT/SPEECH PLEASE EVALUATE AND TREAT INDICATED DIET: PUREED TEXTURE, NECTAR THICK LIQUIDS WITH STRAW MIDLINE--CAREGIVER ASSISTANCE CASE ASSISTANT PLEASE CONSULT TO PROVIDE OPTIMAL NUTRITIONAL NEEDS OTHER ORDERS: V/S DAILY CBC WITH DIFF AND CMP IN ONE WEEK, THEN Q 6 MONTHS TSH AND FREE T4 Q 6 MONTHS SUMMARY: THE PATIENT IS ALERT AND ORIENTED X3. SHE CURRENTLY RESIDES AT [facility]. SHE DESIRES TO RETURN THERE AT DISCHARGE. MS. ELIZONDO REQUIRES COMPLETE CARE. SHE IS UNABLE TO AMBULATE OR TRANSFER WITHOUT HEAVY ASSISTANCE AND/OR USE OF A KARIME LIFT. SHE HAS BEEN UNABLE TO FEED HERSELF OR COMPLETE ANY OF HER HYGIENIC TASKS. SHE HAS REDNESS TO HER BUTTOX THAT WAS PRESENT ON ADMISSION, BUT NO DECUBITUS ULCERS. THE FAMILY ARE AWARE AND AGREEABLE FOR TODAY'S DISCHARGE PLANS. GREGORIO PHIPPS M.D.
--- NOTE | 2016-05-26 12:56 | PCM.PROG ---
Attending Provider: ATTENDING PROVIDER: Dr. GREGORIO PHIPPS DATE OF SERVICE: 05/26/16 SUBJECTIVE: This 80 year old WHITE/ F was hospitalized 05/23/16. The patient is admitted with pneumonia and dehydration from the senior care. No cough during the night per daughter. No fever since admission. The patient is more awake and alert. BUN and creatinine are improved. She was coughing some without any production. REVIEW OF SYSTEMS: CONSTITUTIONAL: No fever, no chills. ENDOCRINE: No weight loss or weight gain. HEENT: No sinus drainage, no sore throat. CVS: No angina symptoms. No CHF symptoms. No palpitations. No atypical chest pain for CAD. No shortness of breath. RESPIRATORY: No cough, no hemoptysis. GI: No melena. No abdominal pain. No nausea, no vomiting. : No hematuria. No polyuria. SKIN: No rash. No wounds. MUSCULOSKELETAL: No pain. DUCT CLEANER: No blackout, no dizziness. No headache. No double vision. PSYCHIATRIC: Not anxious; no depression. No suicidal thoughts. No homicidal thoughts. PHYSICAL EXAMINATION: GENERAL: Lying in bed in no distress. VITAL SIGNS: Temperature 97.7 F, Pulse 91, Respiratory Rate 16, BP 113/65, Pulse Ox 98% HEENT: Normocephalic, atraumatic. Mucosa is dry, pallor positive. NECK: No JVP, no carotid bruit. No lymphadenopathy. CARDIAC: S1, S2, no S3. No murmur, gallop or regurgitation. LUNGS: Decreased entry. Clear to auscultation. ABDOMEN: Soft, non-tender. Bowel sounds active. No rigidity, guarding or CVA tenderness. EXTREMITIES: No clubbing, cyanosis or edema. NEUROLOGIC: Awake, alert, not oriented. LYMPHATIC: No palpable lymph nodes SKIN: Not dry. Intact. MUSCULOSKELETAL: No joint swelling. LAB REVIEW: 05/26/16 04:12 05/26/16 04:12 05/26/16 04:12: WBC 6.25, RBC 3.35 L, Hgb 9.5 L, Hct 30.5 L, MCV 91.0, MCH 28.4 , MCHC 31.1 L, RDW Coeff of Melania 15.3 H, Plt Count 269, Immature Gran % (Auto) 0.8, Neut % (Auto) 72.3, Lymph % (Auto) 11.7, [place] % (Auto) 9.3, Eos % (Auto) 5.3, Baso % (Auto) 0.6, Immature Gran # (Auto) 0.1, Neut # 4.5, Lymph # 0.7, [place] # 0.6, Eos # 0.3, Baso # 0.0, Sodium 145, Potassium 4.2, Chloride 111 H, Carbon Dioxide 27, Anion Gap 11.2, BUN 23 H, Creatinine 0.76, Estimated GFR ( MDRD) 73.00, BUN/Creatinine Ratio 30.26, Glucose 90, Calcium 9.1, Total Bilirubin 0.24, AST 34, ALT 22, Alkaline Phosphatase 74, Total Protein 6.1, Albumin 1.9 L, Globulin 4.2, Albumin/Globulin Ratio 0.45 ASSESSMENT: 1. Healthcare facility acquired pneumonia 2. Dehydration 3. Hypothyroidism 4. Alzheimer's dementia 5. Osteoarthritis PLAN: 1. Repeat chest x-ray 2. Keflex times 7 more days 3. Breathing treatment 4. Mucinex 5. Duonebs 6. Discharge back to senior care pending x-ray finding Plan and coordination of the patient's care discussed in the presence of Firer Boiler and nurse. CONDITION: Stable SCRIBED BY: ELIOT STILES, Safety Administrator scribed while in presence of service performed by Dr. GREGORIO PHIPPS on 05/26/16 ([id number])
--- NOTE | 2016-05-26 13:20 | DI ---
EXAM: Chest one view, frontal view only. HISTORY: Cough. Chest congestion. COMPARISON: 05/23/2016. FINDINGS: Heart size is normal. Atherosclerotic calcifications present. Calcified granulomatous c hanges are present. Right basilar nodular densities seen previously are not identified on the curre nt examination although external monitoring wires overlie this location. Bibasilar reticulonodular opacities are stable. No new areas of consolidation are seen. No pleural effusion or pneumothorax detected. IMPRESSION: Stable bibasilar reticulonodular opacities. Right basilar nodules noted previously not identified o n the current examination, likely due to technical factors. Follow-up is recommended.
--- NOTE | 2016-05-26 13:46 | HP ---
DATE OF SERVICE: 05/23/16 CHIEF COMPLAINT/HISTORY OF PRESENT ILLNESS: This is a 80-year-old female who is under the care of Dr. Holman, has been having cough, congestion, shortness of breath, which is the third episode. The patient has been on antibiotics but this time the patient had more change in mental status and feeling weak and tired. The patient's daughter was worried and brought the patient to the emergency room. Dr. Bee saw the patient in the emergency room. Initial evaluation showed white count of 12,000. ABG showed pH 7.43, pc02 38.7, p02 60. Sodium 135, BUN 32, creatinine 1.59, lactic acid negative. Urine did show nitrites negative, leukocyte esterase negative. CT chest showed bilateral infiltrates and pneumonia and questionable aspiration. Moderate stool in the rectosigmoid colon. At that time, the patient is admitted to the hospital for IV antibiotics, breathing treatments and IV fluids. The case discussed with daughter, who is the power of attorney at law. Explained the seriousness of her condition. REVIEW OF SYSTEMS: CONSTITUTIONAL: Weakness, tiredness, a lot less active. No fever, no chills. HEENT: Normal. ENDOCRINE: No weight gain; no weight loss. CVS: No chest pain. No PND, no orthopnea. No shortness of breath. No PND, no orthopnea. RESPIRATORY: Cough and congestion. No hemoptysis. GI: No nausea, no vomiting. No abdominal pain. No melena. : No hematuria. No polyuria. MUSCULOSKELETAL: No joint swelling. PSYCHIATRIC: Decreased mentation. Not anxious. No depression. No suicidal thoughts. No homicidal thoughts. SKIN: Intact, no open lesions. PAST MEDICAL HISTORY: Osteoarthritis Constipation Alzheimer's dementia with behavioral changes Hypothyroidism Hypertension Dyslipidemia PAST SURGICAL HISTORY: Hysterectomy PERSONAL HISTORY: Does not smoke or drink; partially dependent. FAMILY HISTORY: Not significant. MEDICATIONS: (HOME) Tramadol Senakot Seroquel Nystop Hydrocodone Miralax Milk of Magnesia Synthroid Levaquin Fleet's enema Restasis Clorazepate Aspirin Amantadine Multivitamin Verapamil ALLERGIES: CODEINE, MODAFINIL AND PENICILLIN PHYSICAL EXAMINATION: V/S: BP 101/71, respiratory rate 20, heart rate 88, temperature 99.0. HEENT: Atraumatic, normocephalic. No scleral icterus. Pallor positive. Mucosa dry. NECK: Supple. No JVD, no bruit. No lymphadenopathy. No thyromegaly. HEART: S1, S2 normal. No murmur. No cyanosis or clubbing. No ascites. LUNGS: Decreased entry with basilar crackles. ABDOMEN: Soft, nontender. Bowel sounds are active. No CVA tenderness. No rigidity or guarding. EXTREMITIES: No cyanosis, clubbing or pedal edema. MUSCULOSKELETAL: Normal joints, no swelling. NEUROLOGIC: The patient is awake, alert but not oriented. SKIN: Intact; no open lesions. LYMPHATIC: No lymph nodes palpable. LABS: White count 12.62, hemoglobin 11.6, hematocrit 36.6, platelet count 300. Sodium 135, potassium 4.7, chloride 100, bicarb 27, BUN 32, creatinine 1.59. ASSESSMENT: 1. HEALTH CARE FACILITY ACQUIRED PNEUMONIA 2. ACUTE RENAL FAILURE 3. DEHYDRATION 4. ALZHEIMER'S DEMENTIA 5. HYPERTENSION 6. DYSLIPIDEMIA PLAN: 1. Admit the patient to the regular floor 2. CBC, CMP today and daily 3. IV fluids 4. Rocephin 5. Vancomycin 6. Duonebs 7. Continue home medications 8. Daily I & O's 9. Will follow the patient in daily rounds TIME SPENT: More than 60 minutes today YELENA
[2016-05-26 14:17] VITALS: BP 129/66; TEMP 97.5
[2016-05-27] MEDS ORDERED: SYMMETREL PO SCH (09:00)
--- NOTE | 2016-05-27 14:42 | PN ---
DATE OF SERVICE: 05/24/16 SUBJECTIVE: The patient is admitted with pneumonia, healthcare facility acquired. The patient is more awake, complains about hurting all over. Nuclear scan was done which is negative for PE. The patient's daughter in the room, had a lot of questions. All of them were answered. REVIEW OF SYSTEMS: CONSTITUTIONAL: No fever, no chills. HEENT: Normal. ENDOCRINE: No weight gain, no weight loss. CVS: No angina symptoms. No CHF symptoms. No palpitations. No atypical chest pain for CAD. No shortness of breath. No PND, no orthopnea. RESPIRATORY: No cough, no hemoptysis. GI: No nausea, no vomiting. No abdominal pain. : No hematuria. No polyuria. MUSCULOSKELETAL:. No joint swelling. PSYCHIATRIC: Not anxious. No depression. No suicidal thoughts. No homicidal thoughts. SKIN: Intact. No rash. PHYSICAL EXAMINATION: V/S: BP 88/58, respiratory rate 24, heart rate 65, temperature 98.0. HEENT: Normocephalic, atraumatic. Mucosa dry. Pallor positive. No icterus. NECK: Supple. No JVD, no carotid bruit. No lymphadenopathy. LUNGS: Bilateral entry is decreased with basilar crackles. HEART: S1, S2 normal. No S3. No murmur, gallop or regurgitation. ABDOMEN: Soft, nontender. Bowel sounds active. No rigidity. No rebound or guarding. No CVA tenderness. EXTREMITIES: No cyanosis or clubbing. Complains of hurting but no obvious swelling or deformity. MUSCULOSKELETAL: No joint swelling. NEUROLOGIC: More awake. No focal deficit. LYMPHATIC: No lymph nodes palpable. SKIN: Intact. White count is 9.79, hemoglobin 10.0, hematocrit 32.0, platelet count 248. Sodium 139, potassium 4.4, chloride 104, bicarb 27, BUN 33, creatinine 1.22. ASSESSMENT: 1. HEALTH CARE FACILITY ACQUIRED PNEUMONIA STATUS POST FALL 2. HYPERTENSION 3. DYSLIPIDEMIA 4. ALZHEIMER'S DEMENTIA 5. OSTEOARTHRITIS PLAN: 1. Continue Rocephin 2. Lovenox for DVT prophylaxis 3. Daily I & O's 4. Will follow the patient in daily rounds TIME SPENT: More than 30 minutes MTDD
--- NOTE | 2016-05-28 15:51 | PN ---
DATE OF SERVICE: 05/25/16 SUBJECTIVE: The patient's daughter is in the room. The patient is more awake and alert, she is coughing but not able to get any phlegm. REVIEW OF SYSTEMS: CONSTITUTIONAL: No fever, no chills. HEENT: Normal. ENDOCRINE: No weight gain, no weight loss. CVS: No angina symptoms. No CHF symptoms. No palpitations. No atypical chest pain for CAD. No shortness of breath. No PND, no orthopnea. RESPIRATORY: No cough, no hemoptysis. GI: No nausea, no vomiting. No abdominal pain. : No hematuria. No polyuria. MUSCULOSKELETAL:. No joint swelling. PSYCHIATRIC: Not anxious. No depression. No suicidal thoughts. No homicidal thoughts. SKIN: Intact. No rash. PHYSICAL EXAMINATION: V/S: Blood pressure 115/62, respiratory rate 18, heart rate 77 and temperature 97.7. HEENT: Normocephalic, atraumatic. Mucosa dry. Pallor positive. No icterus. NECK: Supple. No JVD, no carotid bruit. No lymphadenopathy. LUNGS: Decreased and basilar crackles. No rales or rhonchi. HEART: S1, S2 normal. No S3. No murmur, gallop or regurgitation. ABDOMEN: Soft, nontender. Bowel sounds active. No rigidity. No rebound or guarding. No CVA tenderness. EXTREMITIES: No clubbing, cyanosis or pedal edema. MUSCULOSKELETAL: No joint swelling. NEUROLOGIC: Awake, alert but with some confusion. No focal deficit. LYMPHATIC: No lymph nodes palpable. SKIN: Intact. LABS: WBC 6.79, hgb 9.4, hct 30.8, plt count 242, sodium 144, potassium 4.0, chloride 110, Bicarb 27, BUN 33, creatinine 0.99. ASSESSMENT: 1. Health care facility acquired pneumonia 2. Anemia 3. Alzheimer Dementia 4. Osteoarthritis 5. Depression 6. Bipolar disorder 7. Hysterectomy 8. Appendectomy PLAN: 1. Continue the Rocephin 1 gram daily 2. Lovenox for the DVT prophylaxis 3. Stop the IV fluids 4. Start the DUO NEBS twice a day 5. I&O's 6. Will follow the patient in daily rounds. TIME SPENT: More than 30 minutes MTDD
--- NOTE | 2016-05-29 15:10 | DS ---
DATE OF SERVICE: 05/26/16 FINAL DIAGNOSIS: 1. PNEUMONIA, ACUTE HEALTHCARE FACILITY ACQUIRED 2. DEHYDRATION, ACUTE WHICH IS BETTER 3. DYSPHAGIA 4. RENAL FAILURE END STAGE, ACUTE 5. ESSENTIAL HYPERTENSION 6. HYPOTHYROIDISM 7. GASTRIC ULCER 8. PARKINSON'S DISEASE 9. METABOLIC ENCEPHALOPATHY 10. BIPOLAR DISEASE 11. GENERALIZED ANXIETY 12. OSTEOARTHRITIS 13. GLAUCOMA VITAL SIGNS: At the time of discharge, blood pressure 113/65, respiratory rate 16, heart rate 91, temperature 97.7, saturation 98. DISCHARGE INSTRUCTIONS: 1. Discharge the patient back to the alf. 2. Dr. Holman will be following the patient. 3. May participate in the alf activity program as tolerated. 4. Up to dining room for all meals. 5. PT/OT and speech, please evaluate and treat. 6. CBC, CMP in one week then every six months. 7. TSH and Free T4 every 6 months. MEDICATIONS AT DISCHARGE: Continue the alf medications as it is, which are Tylenol, [place], Albuterol, Amantadine, Seroquel, Aspirin, Clorazepate , Synthroid, Magnesium Hydroxide, multivitamin, Cyclosporine, Polyethylene Glycol, Senokot, Timoptic eye drops, Tramadol, Verapamil NEW PRESCRIPTIONS: Keflex 500 mg twice a day for 7 days Mucinex 600 mg p.o. twice a day for 10 days DuoNebs every 8 hours DIET INSTRUCTIONS: Pureed texture, nectar thick DISEASE SPECIFIC EDUCATION: Dehydration and pneumonia were discussed with the patient's daughter in detail. HOSPITAL COURSE: Joshua Kent who is an 80 year old patient who lives at the alf was sent from the alf for the change in mental status, confusion and coughing. She was found to have pneumonia and dehydration. The patient's ABG was hypoxemic with a pH of 7.43, PCO2 38.7, PO2 60, D-Dimer 78.46 , white count 12,000. CT of the chest does show pneumonia and at that time the patient was admitted to the hospital and started on the Rocephin and Vancomycin and IV fluids. Gradually, the patient was more awake and alert. Urine did not grow any culture. The patient was afebrile. As the patient was feeling better and did not have any complications during the hospital stay, she was discharged back to the alf and probiotics will be given and communicated with the alf about the patient's condition and the discharge. Time spent on the patient is more than 45 minutes today. YELENA
== END 2016-05-26 15:21 | DRG 193 ==
LOC: ED 10:38 → UNDOADMIN 12:50 → MEDSURG B 12:50 → MEDSURG A 12:50
PROVIDERS: ADMIT Emergency Medicine; ATTEND Emergency Medicine
DX: J18.9 Pneumonia, unspecified organism (principal); G93.41 Metabolic encephalopathy; N17.8 Other acute kidney failure; R06.02 Shortness of breath; I10 Essential (primary) hypertension; R09.02 Hypoxemia; E86.0 Dehydration; R13.10 Dysphagia, unspecified; E03.9 Hypothyroidism, unspecified; K25.9 Gastric ulcer, unspecified as acute or chronic, without hemorrhage or perforation; G20 Parkinson's disease; F41.1 Generalized anxiety disorder; Y95 Nosocomial condition; Z79.899 Other long term (current) drug therapy
CPT/HCPCS: 36415; 80053; 81001; 82550; 82553; 82803; 83605; 84484; 85025; 85379; 87040; 87081; 93005; 93010; 94640; 96361; 96365; 99223; 99233; 99239; 99284

== ENCOUNTER 2016-05-26 15:24 | Outpatient (CLI) | payer OTHER ==
[2016-05-26 15:59] VITALS: BMI 24.8
== END 2016-05-26 15:25 | disposition home or self-care (01) ==
LOC: AMBL 15:24
PROVIDERS: ATTEND Emergency Medicine
DX: J18.9 Pneumonia, unspecified organism (principal); R23.0 Cyanosis; R06.9 Unspecified abnormalities of breathing; Z99.81 Dependence on supplemental oxygen

== ENCOUNTER 2016-05-26 15:58 | Emergency (ER) ==
[2016-05-26 15:59] VITALS: BMI 24.8
[2016-05-26 16:14] VITALS: BP 151/49; TEMP 96.9
--- NOTE | 2016-05-26 16:18 | ED.PDOC ---
General ED Provider: Dr. YOLANDA LUBIN JR Chief Complaint: Respiratory Complaint Stated Complaint: Pt being sent back to [facility] after inpt at this facility for pneumonia. EMS reported pt's O2 sat dropped to 70's. Returned pt to this ER for eval per family request. Pt's Pulse ox was on index finger of left jeremy. Fingers cool, blue. Disposable pulse OX placed on pt's forehead on arrival to ER2. Showed 100% on NRB. Decreased O2 to 2 l/NC. [ End ]20 minutes 96.9 84 20 1005 151/49. LEFT TOE PAIN(NOT TENDER) Time Seen by Physician: 16:21 Mode of Arrival: Stretcher Information Source: Patient, Family, EMT Exam Limitations: No limitations, Dementia Primary Care Provider: NATA LOTT Nursing and Triage Documentation Reviewed and Agree: Yes Review of Systems - Review Of Systems Constitutional: Reports: No symptoms Eyes: Reports: No symptoms Ears, Nose, Mouth, Throat: Reports: No symptoms Respiratory: Reports: Other Cardiac: Reports: Other GI: Reports: No symptoms : Reports: No symptoms Musculoskeletal: Reports: No symptoms Skin: Reports: Change in color, Cyanosis (fingers blue pink up rapidly) Neurological: Reports: Cognitive dysfunction Endocrine: Reports: No symptoms Hematologic/Lymphatic: Reports: No symptoms All Other Systems: Other Past Medical History - Past Medical History Previously Healthy: No Endocrine: Reports: Hypothyroid Cardiovascular: Reports: Hypertension, Unknown Respiratory: Reports: Pneumonia (resp. infections), Unknown Hematological: Reports: Unknown Gastrointestinal: Reports: PUD (gastric ulcers), Unknown Genitourinary: Reports: Unknown Neuro/Psych: Reports: Bipolar Disorder, Unknown Musculoskeletal: Reports: Unknown Cancer: Reports: None Last Menstrual Period: unknown Other Pertinent Past Medical History: Parkinson, glaucoma, muscle weakness - Surgical History General Surgical History: Reports: Hysterectomy, , Appendectomy, Cholecystectomy, Orthopedic (right wrist left hip replace, ), Other (CATARACT, CRANIOTOMY FOR TUMOR), Unknown - Family History Family History: Reports: Unknown - Social History Smoking Status: Former smoker Hx Substance Use: Yes Alcohol Screening: None Physical Exam - Physical Exam Appearance: Well-appearing, Thin Skin: Warm, Dry, Cyanotic (fingers only- pink up rapidly with manipulation) Psychiatric: Affect appropriate, Mood appropriate Critical Care Note - Critical Care Note Total Time (mins): 0 Course - Course Vital Signs: Temp Pulse Resp BP Pulse Ox 04/17/17 16:02 96.9 F L 84 20 151/49 H 100 JASON Risk Score JASON Risk Score: Risk Score Odds of by 30D 0 0.1 (0.1-0.2) 1 0.3 (0.2-0.3) 2 0.4 (0.3-0.5) 3 0.7 (0.6-0.9) 4 1.2 (1.0-1.5) 5 2.2 (1.9-2.6) 6 3.0 (2.5-3.6) 7 4.8 (3.8-6.1) Departure - Departure Time of Disposition: 16:31 Disposition: HOME SELF-CARE Discharge Problem: Raynaud phenomenon Qualifiers: Raynaud?s-associated gangrene presence: without gangrene Qualifier Code: ( I73.00) Raynaud's syndrome without gangrene Instructions: Acute Hypothermia (ED) Condition: Good Pt referred to PMD for follow-up: Yes Additional Instructions: keep extremities warm for next two weeks avoid excessive cold to fingers inform PMD if fingers become blue and length of time symptom lasts check pulse ox centrally return if worse Allergies/Adverse Reactions: Allergies codeine Adverse Reaction (Verified 05/23/16 10:54) modafinil [From Provigil] Adverse Reaction (Verified 05/23/16 10:54) Penicillins Adverse Reaction (Verified 05/23/16 10:54) Home Medications: Ambulatory Orders Acetaminophen [Mapap] 500 mg PO Q4HR PRN 05/23/16 Amantadine HCl [Amantadine] 100 mg PO DAILY 05/23/16 Aspirin 81 mg PO DAILY 05/23/16 Clorazepate Dipotassium 7.5 mg PO BID 05/23/16 Cyclosporine [Restasis] 1 each OP BID 05/23/16 Hydrocodone Bit/Acetaminophen [[place] 7.5-325] 1 tab PO Q12HR PRN 05/23/16 Levothyroxine Sodium [Synthroid] 75 mcg PO DAILY 05/23/16 Magnesium Hydroxide [Milk of Magnesia] 30 ml PO DAILY 05/23/16 Multivitamin [Daily Multiple Vitamin] 1 each PO DAILY 05/23/16 Na Phos,M-B/Na Phos,Di-Ba [Fleet Enema] 118 ml RC DAILY 05/23/16 Nystatin [Nystop Powder] 1 applic TP Q8HR 05/23/16 Polyethylene Glycol 3350 [Miralax] 17 gm PO DAILY 05/23/16 Quetiapine Fumarate [Seroquel] 50 mg PO BID 05/23/16 Sennosides [Senokot] 8.6 mg PO DAILY PRN 05/23/16 Timolol Maleate 0.5% [Timoptic 0.5% Opth] 1 drop OP DAILY 05/23/16 Tramadol HCl 50 mg PO Q6HR PRN 05/23/16 Verapamil HCl 120 mg PO DAILY 05/23/16 Cephalexin [Keflex] 500 mg PO Q12HR #14 capsule 05/26/16 Guaifenesin [Mucinex] 600 mg PO Q12HR #20 tablet.er 05/26/16 Ipratropium/Albuterol Neb [Duoneb] 1 vial NEB RTBID #60 vial.neb 05/26/16
== END 2016-05-26 17:53 | disposition home or self-care (01) ==
LOC: ED 15:58
DX: I73.00 Raynaud's syndrome without gangrene (principal); F03.90 Unspecified dementia, unspecified severity, without behavioral disturbance, psychotic disturbance, mood disturbance, and anxiety; Z79.899 Other long term (current) drug therapy
CPT/HCPCS: 99282

== ENCOUNTER 2016-12-01 12:26 | Outpatient (CLI) ==
[2016-12-01 12:38] LABS: BILIRUBIN,URINE Negative (NEGATIVE); KETONES,URINE Negative (NEGATIVE); LEUKOCYTE ESTERASE ,URINE Trace (NEGATIVE); NITRITE,URINE Positive (NEGATIVE); PROTEIN,URINE Negative (NEGATIVE); URINE, BLOOD Negative (NEGATIVE)
[2016-12-01 12:53] LABS: ADD URINE MICROSCOPIC YES
[2016-12-01 12:54] LABS: BACTERIA,URINE 3+ (NOT PRESENT)
== END 2016-12-01 12:27 | disposition home or self-care (01) ==
LOC: NONPT 12:26
PROVIDERS: ATTEND Family Medicine
DX: R30.0 Dysuria (principal)
CPT/HCPCS: 81001; 87086; 87186

== ENCOUNTER 2017-03-17 02:17 | Outpatient (CLI) | END 2017-03-17 02:18 | disposition short-term general hospital (02) | LOC: AMBL 02:17 | PROVIDERS: ATTEND Family Medicine | DX: R11.2 Nausea with vomiting, unspecified (principal); R42 Dizziness and giddiness ==

== ENCOUNTER 2017-04-09 17:53 | Outpatient (CLI) | END 2017-04-09 17:54 | disposition home or self-care (01) | LOC: NONPT 17:53 | PROVIDERS: ATTEND Emergency Medicine | DX: R68.89 Other general symptoms and signs (principal) | CPT/HCPCS: 87502 ==

== ENCOUNTER 2017-05-28 09:13 | Outpatient (CLI) ==
[2017-05-28 09:49] VITALS: BMI 23.1
== END 2017-05-28 09:14 | disposition critical access hospital (66) ==
LOC: AMBL 09:13
PROVIDERS: ATTEND Emergency Medicine
DX: J18.9 Pneumonia, unspecified organism (principal)

== ENCOUNTER 2017-05-28 09:34 | Inpatient (IN) | payer OTHER ==
[2017-05-28 09:49] VITALS: BMI 23.1
[2017-05-28] MEDS ORDERED: ZOFRAN TAB PO PRN (10:26)
[2017-05-28] MEDS ORDERED: TYLENOL PO PRN (10:26)
[2017-05-28] MEDS ORDERED: VANCOMYCIN 1 GM in SODIUM CHLORIDE 250 ML IV ONE (11:00)
[2017-05-28] MEDS: ROCEPHIN 1 GM in SODIUM CHLORIDE 50 ML IV SCH (11:08)
--- NOTE | 2017-05-28 13:03 | CT ---
EXAM: CT chest without contrast HISTORY: Coughing, pneumonia COMPARISON: 05/23/2016 TECHNIQUE: CT chest performed without intravenous contrast. Coronal and sagittal reformatted images obtained. FINDINGS: Thoracic inlet unremarkable. Heart normal in size. No pericardial effusion. Aorta nasim l in caliber. Mild to moderate atherosclerosis. Patient status post cholecystectomy. Evaluation for lymphadenopathy limited without contrast. Suggestion of right hilar and subcarinal lymphadenopathy that is very poorly evaluated without contrast with lymph node in the subcarinal region measuring marta roximately 1.3 cm image 27. No acute abnormalities of the bones. Degenerative change in the spine. Sinusoidal curvature of spine.Several hemangiomas noted. Central airway patent. Numerous nodular a reas of consolidation and nodular ground-glass infiltrates are seen throughout all lobes of the lung. More confluent consolidation seen in the right lower lobe. Trace left pleural effusion. No pneumot horax. IMPRESSION: 1. Numerous nodular areas of consolidation and nodular ground-glass infiltrates are seen throughout all lobes of the lung. Findings likely represent multifocal pneumonia. Differential diagnosis includ es atypical infectious process. More confluent consolidation in the right lower lobe, consistent wit h pneumonia. Given the areas of nodularity and mediastinal and right hilar lymphadenopathy suggested, underlying neoplastic etiology not excluded and CT follow-up is recommended in 6 weeks for reevaluat ion, with contrast provided no contraindication. 2. Associated bilateral lower airway thickening, likely infectious/inflammatory. 3. Trace left pleural effusion. 4. Suggestion of right hilar and mediastinal lymphadenopathy, very poorly evaluated without contrast . Recommend attention on follow-up.
[2017-05-28] MEDS: DUONEB NEB SCH ×3 (13:09→23:18)
[2017-05-28] MEDS: ULTRAM PO SCH ×2 (15:36→20:06)
[2017-05-28] MEDS ORDERED: TORADOL IVP PRN (15:48)
[2017-05-28] MEDS ORDERED: DECADRON 4 MG/ML SDV IVP STA (16:59)
[2017-05-28] MEDS: CARDIZEM PO SCH ×2 (17:30→20:06)
[2017-05-28] MEDS: SEROQUEL PO SCH (17:32)
[2017-05-28] MEDS: FERROUS SULFATE PO SCH (20:06)
[2017-05-28] MEDS: NEURONTIN PO SCH (20:07)
[2017-05-28] MEDS: VALIUM PO SCH (20:07)
[2017-05-28] MEDS ORDERED: CLORAZEPATE DIPOTASSIUM 7.5 MG PO SCH (21:00)
[2017-05-28] MEDS ORDERED: NON-FORMULARY MEDICATION (Ferrous Sulfate [Iron] 325 MG) PO SCH (21:00)
[2017-05-28] MEDS: NON-FORMULARY MEDICATION (Cyclosporine 1 EACH) OP SCH (22:09)
[2017-05-29] MEDS: DUONEB NEB SCH ×3 (04:34→18:03)
[2017-05-29] MEDS: SYNTHROID PO SCH (05:30)
[2017-05-29] MEDS ORDERED: VERAPAMIL HCL 120 MG PO SCH (09:00)
[2017-05-29] MEDS ORDERED: NON-FORMULARY MEDICATION (Amantadine Hcl [Amantadine] 100 MG) PO SCH (09:00)
[2017-05-29] MEDS: TIMOPTIC 0.5% OPTH OP SCH (09:59)
[2017-05-29] MEDS: ROCEPHIN 1 GM in SODIUM CHLORIDE 50 ML IV SCH (09:59)
[2017-05-29] MEDS: VANCOMYCIN 500 MG in SODIUM CHLORIDE 100 ML IV SCH (09:59)
[2017-05-29] MEDS: ASPIRIN CHEWABLE PO SCH (11:50)
[2017-05-29] MEDS: CALAN SR PO SCH (11:50)
[2017-05-29] MEDS: CARDIZEM PO SCH ×2 (11:51→20:46)
[2017-05-29] MEDS: NON-FORMULARY MEDICATION (Cyclosporine 1 EACH) OP SCH ×2 (11:51→20:47)
[2017-05-29] MEDS: FERROUS SULFATE PO SCH ×2 (11:51→20:46)
[2017-05-29] MEDS: MILK OF MAGNESIA PO SCH (11:51)
[2017-05-29] MEDS: MULTIVITAMIN TABLET PO SCH (11:52)
[2017-05-29] MEDS: NEURONTIN PO SCH ×2 (11:52→20:46)
[2017-05-29] MEDS: MIRALAX PO SCH (11:52)
[2017-05-29] MEDS: SYMMETREL PO SCH (11:53)
[2017-05-29] MEDS: ZYRTEC PO SCH (11:53)
[2017-05-29] MEDS: ULTRAM PO SCH ×3 (11:53→20:46)
[2017-05-29] MEDS: VALIUM PO SCH ×2 (11:53→20:46)
[2017-05-30] MEDS: DUONEB NEB SCH ×5 (00:05→23:33)
[2017-05-30] MEDS: SYNTHROID PO SCH (05:48)
[2017-05-30] MEDS: MILK OF MAGNESIA PO SCH (09:20)
[2017-05-30] MEDS: TIMOPTIC 0.5% OPTH OP SCH (09:20)
[2017-05-30] MEDS: MIRALAX PO SCH (09:20)
[2017-05-30] MEDS: ROCEPHIN 1 GM in SODIUM CHLORIDE 50 ML IV SCH (09:20)
[2017-05-30] MEDS: SYMMETREL PO SCH (09:21)
[2017-05-30] MEDS: MULTIVITAMIN TABLET PO SCH (09:21)
[2017-05-30] MEDS: FERROUS SULFATE PO SCH ×2 (09:21→21:22)
[2017-05-30] MEDS: NEURONTIN PO SCH ×2 (09:21→21:22)
[2017-05-30] MEDS: ASPIRIN CHEWABLE PO SCH (09:21)
[2017-05-30] MEDS: CARDIZEM PO SCH ×2 (09:22→21:22)
[2017-05-30] MEDS: ULTRAM PO SCH ×3 (09:22→21:21)
[2017-05-30] MEDS: CALAN SR PO SCH (09:22)
[2017-05-30] MEDS: VALIUM PO SCH ×2 (09:22→21:56)
[2017-05-30] MEDS: NON-FORMULARY MEDICATION (Cyclosporine 1 EACH) OP SCH ×2 (09:30→21:10)
[2017-05-30] MEDS: ZYRTEC PO SCH (09:31)
[2017-05-30] MEDS: VANCOMYCIN 500 MG in SODIUM CHLORIDE 100 ML IV SCH (10:35)
[2017-05-30] MEDS: SEROQUEL PO SCH (15:56)
[2017-05-31] MEDS: DUONEB NEB SCH ×4 (05:18→23:03)
[2017-05-31] MEDS: SYNTHROID PO SCH (05:41)
[2017-05-31] MEDS: ROCEPHIN 1 GM in SODIUM CHLORIDE 50 ML IV SCH (09:46)
[2017-05-31] MEDS: CALAN SR PO SCH (09:49)
[2017-05-31] MEDS: SYMMETREL PO SCH (09:49)
[2017-05-31] MEDS: CARDIZEM PO SCH ×2 (09:49→21:17)
[2017-05-31] MEDS: TIMOPTIC 0.5% OPTH OP SCH (09:49)
[2017-05-31] MEDS: MULTIVITAMIN TABLET PO SCH (09:50)
[2017-05-31] MEDS: ASPIRIN CHEWABLE PO SCH (09:50)
[2017-05-31] MEDS: FERROUS SULFATE PO SCH ×2 (09:50→21:16)
[2017-05-31] MEDS: ZYRTEC PO SCH (09:50)
[2017-05-31] MEDS: ULTRAM PO SCH ×3 (09:51→21:17)
[2017-05-31] MEDS: NEURONTIN PO SCH ×2 (09:51→21:16)
[2017-05-31] MEDS: NON-FORMULARY MEDICATION (Cyclosporine 1 EACH) OP SCH ×2 (09:51→21:18)
[2017-05-31] MEDS: VALIUM PO SCH ×2 (09:52→21:17)
[2017-05-31] MEDS: MILK OF MAGNESIA PO SCH (09:52)
[2017-05-31] MEDS: MIRALAX PO SCH (09:52)
[2017-05-31] MEDS: VANCOMYCIN 500 MG in SODIUM CHLORIDE 100 ML IV SCH (11:08)
[2017-06-01] MEDS: DUONEB NEB SCH ×4 (04:24→21:05)
[2017-06-01] MEDS: SYNTHROID PO SCH (05:43)
[2017-06-01] MEDS: ROCEPHIN 1 GM in SODIUM CHLORIDE 50 ML IV SCH (08:56)
[2017-06-01] MEDS: TIMOPTIC 0.5% OPTH OP SCH (09:00)
[2017-06-01] MEDS: MILK OF MAGNESIA PO SCH (09:00)
[2017-06-01] MEDS: ASPIRIN CHEWABLE PO SCH (09:04)
[2017-06-01] MEDS: CALAN SR PO SCH (09:04)
[2017-06-01] MEDS: FERROUS SULFATE PO SCH ×2 (09:04→21:46)
[2017-06-01] MEDS: MULTIVITAMIN TABLET PO SCH (09:05)
[2017-06-01] MEDS: SYMMETREL PO SCH (09:05)
[2017-06-01] MEDS: VALIUM PO SCH ×2 (09:05→21:46)
[2017-06-01] MEDS: NEURONTIN PO SCH ×2 (09:05→21:46)
[2017-06-01] MEDS: CARDIZEM PO SCH ×2 (09:05→21:46)
[2017-06-01] MEDS: ZYRTEC PO SCH (09:05)
[2017-06-01] MEDS: ULTRAM PO SCH ×3 (09:05→21:46)
[2017-06-01] MEDS: MIRALAX PO SCH (09:06)
[2017-06-01] MEDS: NON-FORMULARY MEDICATION (Cyclosporine 1 EACH) OP SCH ×2 (09:06→21:48)
[2017-06-01] MEDS: VANCOMYCIN 500 MG in SODIUM CHLORIDE 100 ML IV SCH (09:56)
--- NOTE | 2017-06-01 10:34 | HP ---
DATE OF SERVICE: 05/28/17 CHIEF COMPLAINT: Coughing and shortness of breath HISTORY OF PRESENT ILLNESS: This is an 81 year old female who is a [facility] been having, cough , congestion and fever and chills for which the patient been started on the antibiotic Keflex, steroids and some breathing treatments. Chest x-ray did show right lower lobe pneumonia. The family did refuse the admission two days ago but today morning the patient was noted to be hypoxic and saturation was 90% on the room air short of air, coughing and congestion when the nurse approached the family the approved the admission. At that time the patient being directly admitted to the hospital for the right lower lobe pneumonia, facility acquired pneumonia. REVIEW OF SYSTEMS: CONSTITUTIONAL: No fever, no chills. Weakness and tiredness. HEENT: Normal. ENDOCRINE: No weight gain; no weight loss. CVS: No chest pain. No PND, no orthopnea. Shortness of breath. No PND, no orthopnea. RESPIRATORY: Cough, Congestion. No hemoptysis. GI: No nausea, no vomiting. No abdominal pain. No melena. : No hematuria. No polyuria. MUSCULOSKELETAL: No joint swelling. PSYCHIATRIC: Not anxious. No depression. No suicidal thoughts. No homicidal thoughts. SKIN: Intact, no open lesions. PAST MEDICAL HISTORY: CAD Hypotension Dyslipidemia Alzheimer's Dementia Parkinson's Disease History of pneumonia Hysterectomy Osteoarthritis Bipolar Depression PAST SURGICAL HISTORY: Hysterectomy Cholecystectomy Left hip replacement Appendectomy Cataracts PERSONAL HISTORY: The [facility] in the [facility] and partially dependant upon the ADL's. Family history is significant for the dementia, hypertension, colon cancer. MEDICATIONS: Tramadol Timoptic Miralax Milk of magnesia Tylenol Synthroid Restasis Clorazepate Aspirin Amantadine Multivitamin Verapamil Keflex Zofran Gabapentin Seroquel DUO NEBS Cetirizine Ferrous Sulfate ALLERGIES: Codeine Modafinil Penicillin PHYSICAL EXAMINATION: V/S: Blood pressure 159/88, respiratory rate 24, heart rate 117, temperature 98.2, saturation 97 on 2 liters. HEENT: Atraumatic, normocephalic. No scleral icterus. Mucosa dry. NECK: Supple. No JVD, no bruit. No lymphadenopathy. No thyromegaly. HEART: S1, S2 normal. No murmur. No cyanosis or clubbing. No ascites. LUNGS: Decreased and basilar crackles. Defused wheezing. Clear to auscultation. No rales or rhonchi. ABDOMEN: Soft, nontender. Bowel sounds are active. No CVA tenderness. No rigidity or guarding. EXTREMITIES: No pedal edema. No cyanosis or clubbing MUSCULOSKELETAL: Normal joints, no swelling. NEUROLOGIC: The patient is awake. SKIN: Intact; no open lesions. LYMPHATIC: No lymph nodes palpable. LABS: Sodium 140, potassium 4.1, chloride 102, bicarb 29, BUN 35, creatinine 1.32, glucose 96, WBC 10.33, hgb 9.7, hct 30.7. plt count 311. ABG showed the pH 7.42 , pCO2 44.0, pO2 48. ASSESSMENT: 1. Multilobular pneumonia, facility acquired 2. Hypertension 3. Alzheimer's Dementia 4. Parkinson's disease 5. Osteoarthritis 6. DJD spine PLAN: 1. Admit the patient to the regular floor 2. CBC and CMP today and daily 3. Cardiac enzymes and troponin 4. IV fluids 5. Rocephin 1 gram daily 6. Vancomycin 1 gram daily 7. DUO NEBS 8. Toradol 9. 1 cc Decadron 10.Daily I&O's TIME SPENT: MORE THAN [address] [facility]
--- NOTE | 2017-06-01 10:50 | PN ---
DATE OF SERVICE: 05/29/17 SUBJECTIVE: 81 year old female admitted with multifocal pneumonia, shortness of breath and coughing. The patient is sleeping. No fever. REVIEW OF SYSTEMS: CONSTITUTIONAL: No fever, no chills. HEENT: Normal. ENDOCRINE: No weight gain, no weight loss. CVS: No angina symptoms. No CHF symptoms. No palpitations. No atypical chest pain for CAD. No shortness of breath. No PND, no orthopnea. RESPIRATORY: Still cough and getting yellow/green phlegm, no hemoptysis. GI: No nausea, no vomiting. No abdominal pain. : No hematuria. No polyuria. MUSCULOSKELETAL: No joint swelling. PSYCHIATRIC: Not anxious. No depression. No suicidal thoughts. No homicidal thoughts. SKIN: Intact. No rash. PHYSICAL EXAMINATION: V/S: Blood pressure 154/74, respiratory rate 20, heart rate 65, temperature 98.1 , saturation 100% on 2 liters. HEENT: Normocephalic, atraumatic. Mucosa dry. Pallor positive. No icterus. NECK: Supple. No JVD, no carotid bruit. No lymphadenopathy. LUNGS: Bilateral entry is decreased and basilar crackles. Clear to auscultation. No rales or rhonchi. HEART: S1, S2 normal. No S3. No murmur, gallop or regurgitation. ABDOMEN: Soft, nontender. Bowel sounds active. No rigidity. No rebound or guarding. No CVA tenderness. EXTREMITIES: No pedal edema. No clubbing or cyanosis MUSCULOSKELETAL: No joint swelling. NEUROLOGIC: Awake, alert, responses to the verbal stimuli and goes back to sleep. No focal deficit. LYMPHATIC: No lymph nodes palpable. SKIN: Intact. LABS: WBC 10.33, hgb 9.7, hct 30.7, plt count 311, sodium 140, potassium 4.1, chloride 102, bicarb 29, BUN 35, creatinine 1.32. ABG showed the pH 7.42, pCO2 44, pO2 48. ASSESSMENT: 1. Hypoxemic respiratory failure 2. Facility acquired pneumonia, multifocal 3. Anemia 4. Hypertension 5. Dyslipidemia 6. Alzheimer's Dementia 7. Parkinson's disease 8. Osteoarthritis 9. Bipolar 10.Depression PLAN: 1. Continue the Rocephin, Vancomycin and DUO NEBS 2. IV fluids 3. Vancomycin Trough levels TIME SPENT: More than 35 minutes MTDD
--- NOTE | 2017-06-01 11:00 | PN ---
DATE OF SERVICE: 05/30/17 SUBJECTIVE: The patient was admitted with the multifocal pneumonia, pleuritis pain right sided. The patient is up and about. REVIEW OF SYSTEMS: CONSTITUTIONAL: No fever, no chills. HEENT: Normal. ENDOCRINE: No weight gain, no weight loss. CVS: No angina symptoms. No CHF symptoms. No palpitations. No atypical chest pain for CAD. No shortness of breath. No PND, no orthopnea. RESPIRATORY: Cough getting yellow/green phlegm, no hemoptysis. GI: No nausea, no vomiting. No abdominal pain. : No hematuria. No polyuria. MUSCULOSKELETAL: No joint swelling. PSYCHIATRIC: Not anxious. No depression. No suicidal thoughts. No homicidal thoughts. SKIN: Intact. No rash. PHYSICAL EXAMINATION: V/S: Blood pressure 130/74, respiratory rate 16, heart rate 71, temperature 98.0 and saturation 96 on 2 liters. HEENT: Normocephalic, atraumatic. Mucosa dry. NECK: Supple. No JVD, no carotid bruit. No lymphadenopathy. LUNGS: Decreased and basilar crackles. Mild expiratory wheezing. Clear to auscultation. No rales or rhonchi. HEART: S1, S2 normal. No S3. No murmur, gallop or regurgitation. ABDOMEN: Soft, nontender. Bowel sounds active. No rigidity. No rebound or guarding. No CVA tenderness. EXTREMITIES: No pedal edema. No clubbing or cyanosis MUSCULOSKELETAL: No joint swelling. NEUROLOGIC: Awake, alert, oriented times three. No focal deficit. LYMPHATIC: No lymph nodes palpable. SKIN: Intact. LABS: WBC 11.70, hgb 9.7, hct 30.1, plt count 350, sodium 138, potassium 3.8, chloride 100, bicarb 30, BUN 20, creatinine 0.93 and glucose 105. ASSESSMENT: 1. Multifocal pneumonia, facility acquired 2. Dehydration which is better 3. Acute on chronic renal failure 4. Hypertension 5. Alzheimer's Dementia 6. Osteoarthritis 7. DJD spine PLAN: 1. Continue Vancomycin 1 gram daily 2. Rocephin 1 gram daily 3. IV fluids 4. DUO NEBS TIME SPENT: More than 35 minutes MTDD
--- NOTE | 2017-06-01 11:25 | PN ---
DATE OF SERVICE: 05/31/17 SUBJECTIVE: The patient was admitted with multifocal pneumonia. The patient is doing some better. REVIEW OF SYSTEMS: CONSTITUTIONAL: No fever, no chills. HEENT: Normal. ENDOCRINE: No weight gain, no weight loss. CVS: No angina symptoms. No CHF symptoms. No palpitations. No atypical chest pain for CAD. No shortness of breath. No PND, no orthopnea. RESPIRATORY: Still coughing and congested, no hemoptysis. GI: No nausea, no vomiting. No abdominal pain. : No hematuria. No polyuria. MUSCULOSKELETAL: No joint swelling. PSYCHIATRIC: Not anxious. No depression. No suicidal thoughts. No homicidal thoughts. SKIN: Intact. No rash. PHYSICAL EXAMINATION: V/S: Blood pressure 103/66, respiratory rate 18, heart rate 74, temperature 98.8 and saturation 95%. HEENT: Normocephalic, atraumatic. Mucosa dry. Pallor positive. No icterus. NECK: Supple. No JVD, no carotid bruit. No lymphadenopathy. LUNGS: Decreased and basilar crackles. Clear to auscultation. No rales or rhonchi. HEART: S1, S2 normal. No S3. No murmur, gallop or regurgitation. ABDOMEN: Soft, nontender. Bowel sounds active. No rigidity. No rebound or guarding. No CVA tenderness. EXTREMITIES: No pedal edema. No clubbing or cyanosis MUSCULOSKELETAL: No joint swelling. NEUROLOGIC: Awake, alert. No focal deficit. LYMPHATIC: No lymph nodes palpable. SKIN: Intact. LABS: WBC 11.70, hgb 9.7, hct 30.1, plt count 350, sodium 138, potassium 3.8, chloride 100, bicarb 30, BUN 20, creatinine 0.93, glucose 108.ABG pH 7.42,pCO2 44, pO2 48. ASSESSMENT: 1. Acute hypoxemic respiratory failure 2. Multifocal pneumonia, facility acquired 3. Anemia 4. Acute renal failure which is better 5. Dyslipidemia 6. Hypertension 7. Alzheimer's Dementia 8. Parkinson's disease 9. History of pneumonia 10.Appendectomy 11.Left hip replacement 12.Osteoarthritis 13.Bipolar disorder 14.Depression 15.The patient did have some kind of surgery on the brain. PLAN: 1. Continue Rocephin 2. DUO NEBS 3. Vancomycin 4. Daily I&O's TIME SPENT: More than 35 minutes YELENA
[2017-06-01] MEDS: SEROQUEL PO SCH (16:05)
[2017-06-02] MEDS: DUONEB NEB SCH ×4 (05:03→19:25)
[2017-06-02] MEDS: SYNTHROID PO SCH (06:07)
[2017-06-02] MEDS: ROCEPHIN 1 GM in SODIUM CHLORIDE 50 ML IV SCH (09:24)
[2017-06-02] MEDS: SYMMETREL PO SCH (09:27)
[2017-06-02] MEDS: ASPIRIN CHEWABLE PO SCH (09:27)
[2017-06-02] MEDS: CALAN SR PO SCH (09:27)
[2017-06-02] MEDS: TIMOPTIC 0.5% OPTH OP SCH (09:27)
[2017-06-02] MEDS: MIRALAX PO SCH (09:27)
[2017-06-02] MEDS: MILK OF MAGNESIA PO SCH (09:27)
[2017-06-02] MEDS: ULTRAM PO SCH ×3 (09:27→21:53)
[2017-06-02] MEDS: FERROUS SULFATE PO SCH ×2 (09:28→21:53)
[2017-06-02] MEDS: ZYRTEC PO SCH (09:28)
[2017-06-02] MEDS: NEURONTIN PO SCH ×2 (09:28→21:53)
[2017-06-02] MEDS: MULTIVITAMIN TABLET PO SCH (09:28)
[2017-06-02] MEDS: VALIUM PO SCH ×2 (09:28→21:53)
[2017-06-02] MEDS: CARDIZEM PO SCH ×2 (09:28→21:53)
[2017-06-02] MEDS: NON-FORMULARY MEDICATION (Cyclosporine 1 EACH) OP SCH ×2 (09:29→21:55)
[2017-06-02] MEDS: VANCOMYCIN 750 MG in SODIUM CHLORIDE 250 ML IV SCH (10:20)
[2017-06-02] MEDS: VANCOMYCIN 500 MG in SODIUM CHLORIDE 100 ML IV SCH (10:21)
--- NOTE | 2017-06-02 14:54 | PN ---
DATE OF SERVICE: 06/01/17 SUBJECTIVE: The patient was admitted with the multifocal pneumonia. REVIEW OF SYSTEMS: CONSTITUTIONAL: No fever, no chills. HEENT: Normal. ENDOCRINE: No weight gain, no weight loss. CVS: No angina symptoms. No CHF symptoms. No palpitations. No atypical chest pain for CAD. No shortness of breath. No PND, no orthopnea. RESPIRATORY: Cough and congestion, no hemoptysis. GI: No nausea, no vomiting. No abdominal pain. : No hematuria. No polyuria. MUSCULOSKELETAL: No joint swelling. PSYCHIATRIC: Not anxious. No depression. No suicidal thoughts. No homicidal thoughts. SKIN: Intact. No rash. PHYSICAL EXAMINATION: V/S: Blood pressure 129/68, respiratory rate 20, heart rate 76, temperature 98.2 with saturation 98. HEENT: Normocephalic, atraumatic. Mucosa dry. pallor positive. No icterus. NECK: Supple. No JVD, no carotid bruit. No lymphadenopathy. LUNGS: Decreased and basilar crackles. Clear to auscultation. No rales or rhonchi. HEART: S1, S2 normal. No S3. No murmur, gallop or regurgitation. ABDOMEN: Soft, nontender. Bowel sounds active. No rigidity. No rebound or guarding. No CVA tenderness. EXTREMITIES: No pedal edema. No clubbing or cyanosis MUSCULOSKELETAL: No joint swelling. NEUROLOGIC: Awake, alert, oriented times three. No focal deficit. LYMPHATIC: No lymph nodes palpable. SKIN: Intact. LABS: WBC 11.70, hgb 11.7, hct 30.1, plt count 350, sodium 138, potassium 3.8, chloride 100, bicarb 30, BUN 20, creatinine 0.93 and glucose 105. ASSESSMENT: 1. Multifocal pneumonia, health care facility acquired pneumonia 2. Hypoxemic respiratory failure 3. Hypertension 4. Dyslipidemia 5. Alzheimer's dementia 6. Parkinson's disease 7. Constipation 8. Hysterectomy 9. Osteoarthritis PLAN: 1. Continue the antibiotic Vancomycin 2. DUO NEBS 3. Rocephin 4. IV fluids 5. Daily I&O's TIME SPENT: More than 35 minutes MTDD
--- NOTE | 2017-06-02 15:45 | DI ---
EXAM: CHEST FRONTAL VIEW HISTORY: Pneumonia. COMPARISON: 05/26/2016 FINDINGS: Heart size is within normal limits. There is mild to moderate atherosclerosis. There is d iffuse, chronic appearing interstitial accentuation. Subtle infiltrate in the lower aspect of the ri ght upper lobe not seen previously could represent mild pneumonia. Lungs are otherwise clear. No pl eural fluid, vascular congestion or pneumothorax. IMPRESSION: Subtle pneumonia in the lower aspect of the right upper lobe.
[2017-06-03] MEDS: DUONEB NEB SCH ×3 (04:28→14:05)
[2017-06-03] MEDS: SYNTHROID PO SCH (06:14)
[2017-06-03] MEDS: ROCEPHIN 1 GM in SODIUM CHLORIDE 50 ML IV SCH (09:39)
[2017-06-03] MEDS: MIRALAX PO SCH (09:42)
[2017-06-03] MEDS: MILK OF MAGNESIA PO SCH (09:42)
[2017-06-03] MEDS: SYMMETREL PO SCH (09:45)
[2017-06-03] MEDS: VALIUM PO SCH (09:46)
[2017-06-03] MEDS: ULTRAM PO SCH ×2 (09:46→15:35)
[2017-06-03] MEDS: NEURONTIN PO SCH (09:46)
[2017-06-03] MEDS: ASPIRIN CHEWABLE PO SCH (09:46)
[2017-06-03] MEDS: MULTIVITAMIN TABLET PO SCH (09:47)
[2017-06-03] MEDS: ZYRTEC PO SCH (09:47)
[2017-06-03] MEDS: FERROUS SULFATE PO SCH (09:47)
[2017-06-03] MEDS: CALAN SR PO SCH (09:47)
[2017-06-03] MEDS: TIMOPTIC 0.5% OPTH OP SCH (09:48)
[2017-06-03] MEDS: NON-FORMULARY MEDICATION (Cyclosporine 1 EACH) OP SCH (09:48)
[2017-06-03] MEDS: CARDIZEM PO SCH (09:48)
[2017-06-03] MEDS: VANCOMYCIN 750 MG in SODIUM CHLORIDE 250 ML IV SCH (10:41)
--- NOTE | 2017-06-03 11:17 | PN ---
DATE OF SERVICE: 06/02/17 SUBJECTIVE: Still coughing and congestion some times only. No PND or Orthropnea. Getting yellow thick phlegm. REVIEW OF SYSTEMS: CONSTITUTIONAL: No fever, no chills. HEENT: Normal. ENDOCRINE: No weight gain, no weight loss. CVS: No angina symptoms. No CHF symptoms. No palpitations. No atypical chest pain for CAD. No shortness of breath. No PND, no orthopnea. RESPIRATORY: Cough, no hemoptysis. GI: No nausea, no vomiting. No abdominal pain. : No hematuria. No polyuria. MUSCULOSKELETAL: No joint swelling. PSYCHIATRIC: Not anxious. No depression. No suicidal thoughts. No homicidal thoughts. SKIN: Intact. No rash. PHYSICAL EXAMINATION: V/S: blood pressure 96/62, respiratory rate 20, heart rate 67 and temperature 97.7 with saturation 97 on 2 liters. HEENT: Normocephalic, atraumatic. Mucosa dry. Pallor positive. No icterus. NECK: Supple. No JVD, no carotid bruit. No lymphadenopathy. LUNGS: Decreased and basilar crackles. No rales or rhonchi. HEART: S1, S2 normal. No S3. No murmur, gallop or regurgitation. ABDOMEN: Soft, nontender. Bowel sounds active. No rigidity. No rebound or guarding. No CVA tenderness. EXTREMITIES: No pedal edema. No clubbing or cyanosis MUSCULOSKELETAL: No joint swelling. NEUROLOGIC: Awake, alert, oriented times three. No focal deficit. LYMPHATIC: No lymph nodes palpable. SKIN: Intact. LABS: WBC 9.51, hgb 9.3, hct 29.4, plt count 340, sodium 139, potassium 4.6, chloride 100, bicarb 31, BUN 16, creatinine 0.82 and glucose 90. ASSESSMENT: 1. Bibasilar multifocal pneumonia, health care facility acquired pneumonia 2. Anemia 3. Coronary artery disease 4. Hypertension 5. Dyslipidemia 6. History of brain tumor with the craniotomy 7. Appendectomy 8. Left hip replacement PLAN: 1. Continue Rocephin and Vancomycin 2. DUO NEBS 3. IV fluids 4. Daily I&O's TIME SPENT: More than 35 minutes MTDD
[2017-06-03 15:24] VITALS: BP 113/70; TEMP 99
[2017-06-03] MEDS: SEROQUEL PO SCH (15:36)
--- NOTE | 2017-06-05 10:42 | DS ---
DATE OF SERVICE: 06/03/17 FINAL DIAGNOSIS: 1. COPD EXACERBATION SECONDARY TO PNEUMONIA 2. HYPOXEMIC RESPIRATORY FAILURE STATUS POST MULTIFOCAL PNEUMONIA 3. STATUS POST CHANGE IN MENTAL STATUS 4. DEHYDRATION, WHICH IS BETTER 5. NON MALIGNANT BRAIN TUMOR 6. DYSLIPIDEMIA 7. HYPERTENSION 8. CONSTIPATION 9. OSTEOARTHRITIS 10. BIPOLAR DISORDER 11. ANXIETY DISORDER 12. HYSTERECTOMY 13. CHOLECYSTECTOMY 14. BILATERAL CATARACTS 15. LEFT HIP REPAIR 16. APPENDECTOMY 17. CRANIOTOMY 18. CURENT PROBLEM IS RIGHT LOWER LOBE PNEUMONIA NEEDING ANTIBIOTICS DISCHARGE INSTRUCTIONS: Discharge patient to transitional care unit with antibiotic Rocephin, Vancomycin , Oxygen, Duonebs, breathing treatment, daily I & O's. MEDICATIONS AT DISCHARGE: Toradol 30 mg IVP q.12hr p.r.n. Tylenol 500 mg p.o. q.4hr p.r.n. Zofran 4 mg p.o. q.6h p.r.n. Saline flush IVF q.8hr Cardizem 30 mg p.o. q.12hr Ferrous Sulfate 324 mg p.o. b.i.d. Valium 5 mg p.o. q.12hr Clorazepate Dipotassium 7.5 mg p.o. b.i.d. Cyclosporine one each OP b.i.d. Gabapentin 100 mg p.o. b.i.d. Ultram 50 mg p.o. t.i.d. NEW MEDICATIONS: Rocephin Vancomycin Duonebs Solu-Medrol Daily I & O DIET INSTRUCTIONS: Cardiac and healthy ACTIVITY: Bedrest; transfer to chair with help. SMOKING: N/A DISEASE SPECIFIC EDUCATION: Dehydration Pneumonia Change in mental status and pneumonia discussed, verbalized understanding HOSPITAL COURSE: This is a 81-year-old female who came from the intermediate. The patient was treated at the intermediate for right lower lobe pneumonia and shortness of breath. The patient's condition was getting worse. The patient was transferred to [facility] and did the direct admsission. ABG showed pH of 7.42 , pc02 44.0, p02 48. White count was 10,000. CT of the chest showed multifocal pneumonia. Hemoglobin 9.7, started on Rocephin, Vancomycin and breathing treatment. Solu-Medrol was given. Gradually the patient was more awake and alert with given the IV fluids. The patient really communicates well. Hemoglobin has been steady 9.7, 9.3. ABG was not repeated. BUN and creatinine improved from 35 and 1.3 to 16 and 0.82. Vancomycin trough levels were negative. Repeat chest x-ray was done on the , still showing right lower lobe pneumonia. At this time, the patient is planned for admission to Transitional Care Unit for continuing IV antibiotics and breathing treatment. TIME SPENT: MORE THAN 65 MINUTES MTDD
== END 2017-06-03 16:00 | disposition swing bed (61) | DRG 193 ==
LOC: MEDSURG B 09:34
PROVIDERS: ADMIT Emergency Medicine; ATTEND Emergency Medicine
DX: J18.1 Lobar pneumonia, unspecified organism (principal); J96.01 Acute respiratory failure with hypoxia; J44.1 Chronic obstructive pulmonary disease with (acute) exacerbation; N17.9 Acute kidney failure, unspecified; Y95 Nosocomial condition; G30.1 Alzheimer's disease with late onset; F02.80 Dementia in other diseases classified elsewhere, unspecified severity, without behavioral disturbance, psychotic disturbance, mood disturbance, and anxiety; I10 Essential (primary) hypertension; D64.9 Anemia, unspecified; I12.9 Hypertensive chronic kidney disease with stage 1 through stage 4 chronic kidney disease, or unspecified chronic kidney disease; N18.9 Chronic kidney disease, unspecified; G20 Parkinson's disease; R41.82 Altered mental status, unspecified; E86.0 Dehydration; D33.2 Benign neoplasm of brain, unspecified; E78.5 Hyperlipidemia, unspecified; K59.00 Constipation, unspecified; M19.90 Unspecified osteoarthritis, unspecified site; F31.9 Bipolar disorder, unspecified; F41.8 Other specified anxiety disorders; Z87.01 Personal history of pneumonia (recurrent); Z98.890 Other specified postprocedural states; Z79.899 Other long term (current) drug therapy
CPT/HCPCS: 36415; 80053; 80202; 82803; 85025; 87070; 87081; 87502; 94640

== ENCOUNTER 2017-06-03 16:14 | Inpatient (IN) | payer OTHER ==
[2017-06-03] MEDS ORDERED: TORADOL IVP PRN (16:26)
[2017-06-03] MEDS ORDERED: TYLENOL PO PRN (16:30)
[2017-06-03] MEDS ORDERED: ZOFRAN TAB PO PRN (16:30)
[2017-06-03] MEDS ORDERED: DUONEB NEB SCH (16:30)
[2017-06-03 16:41] VITALS: BMI 23.0
[2017-06-03] MEDS: ULTRAM PO SCH (20:34)
[2017-06-03] MEDS: VALIUM PO SCH (20:34)
[2017-06-03] MEDS: NEURONTIN PO SCH (20:34)
[2017-06-03] MEDS: FERROUS SULFATE PO SCH (20:34)
[2017-06-03] MEDS: CARDIZEM PO SCH (20:34)
[2017-06-03] MEDS: NON-FORMULARY MEDICATION (Cyclosporine 1 EACH) OP SCH (20:35)
[2017-06-03] MEDS ORDERED: NON-FORMULARY MEDICATION (Ferrous Sulfate [Iron] 325 MG) PO SCH (21:00)
[2017-06-03] MEDS ORDERED: CLORAZEPATE DIPOTASSIUM 7.5 MG PO SCH (21:00)
[2017-06-03] MEDS: DUONEB NEB SCH (21:36)
[2017-06-04] MEDS: DUONEB NEB SCH ×4 (04:33→21:18)
[2017-06-04] MEDS: SYNTHROID PO SCH (05:47)
[2017-06-04] MEDS: ROCEPHIN 1 GM in SODIUM CHLORIDE 50 ML IV SCH (08:30)
[2017-06-04] MEDS: MILK OF MAGNESIA PO SCH (08:30)
[2017-06-04] MEDS: ASPIRIN CHEWABLE PO SCH (08:31)
[2017-06-04] MEDS: TIMOPTIC 0.5% OPTH OP SCH (08:31)
[2017-06-04] MEDS: NEURONTIN PO SCH ×2 (08:31→21:31)
[2017-06-04] MEDS: MULTIVITAMIN TABLET PO SCH (08:31)
[2017-06-04] MEDS: CALAN SR PO SCH (08:31)
[2017-06-04] MEDS: FERROUS SULFATE PO SCH ×2 (08:32→21:31)
[2017-06-04] MEDS: SYMMETREL PO SCH (08:32)
[2017-06-04] MEDS: ZYRTEC PO SCH (08:32)
[2017-06-04] MEDS: CARDIZEM PO SCH ×2 (08:32→21:31)
[2017-06-04] MEDS: MIRALAX PO SCH (08:33)
[2017-06-04] MEDS ORDERED: NON-FORMULARY MEDICATION (Amantadine Hcl [Amantadine] 100 MG) PO SCH (09:00)
[2017-06-04] MEDS ORDERED: VERAPAMIL HCL 120 MG PO SCH (09:00)
[2017-06-04] MEDS: VALIUM PO SCH ×2 (10:01→21:32)
[2017-06-04] MEDS: ULTRAM PO SCH ×3 (10:01→21:31)
[2017-06-04] MEDS: VANCOMYCIN 750 MG in SODIUM CHLORIDE 250 ML IV SCH (10:02)
[2017-06-04] MEDS: NON-FORMULARY MEDICATION (Cyclosporine 1 EACH) OP SCH ×2 (10:26→21:32)
[2017-06-04] MEDS ORDERED: DIFLUCAN PO STA (14:06)
[2017-06-05] MEDS: DUONEB NEB SCH ×4 (04:40→19:43)
[2017-06-05] MEDS: SYNTHROID PO SCH (05:45)
[2017-06-05] MEDS ORDERED: TORADOL IVP PRN (08:26)
[2017-06-05] MEDS ORDERED: DIFLUCAN PO SCH (09:00)
[2017-06-05] MEDS: ROCEPHIN 1 GM in SODIUM CHLORIDE 50 ML IV SCH (09:03)
[2017-06-05] MEDS: SYMMETREL PO SCH (09:10)
[2017-06-05] MEDS: ASPIRIN CHEWABLE PO SCH (09:10)
[2017-06-05] MEDS: CALAN SR PO SCH (09:11)
[2017-06-05] MEDS: CARDIZEM PO SCH ×2 (09:11→21:51)
[2017-06-05] MEDS: NON-FORMULARY MEDICATION (Cyclosporine 1 EACH) OP SCH ×2 (09:12→21:51)
[2017-06-05] MEDS: FERROUS SULFATE PO SCH ×2 (09:12→21:51)
[2017-06-05] MEDS: MILK OF MAGNESIA PO SCH (09:12)
[2017-06-05] MEDS: MULTIVITAMIN TABLET PO SCH (09:13)
[2017-06-05] MEDS: MIRALAX PO SCH (09:13)
[2017-06-05] MEDS: NEURONTIN PO SCH ×2 (09:14→21:50)
[2017-06-05] MEDS: TIMOPTIC 0.5% OPTH OP SCH (09:14)
[2017-06-05] MEDS: ULTRAM PO SCH ×3 (09:15→21:51)
[2017-06-05] MEDS: VALIUM PO SCH ×2 (09:15→21:51)
[2017-06-05] MEDS: ZYRTEC PO SCH (09:16)
[2017-06-05] MEDS: VANCOMYCIN 750 MG in SODIUM CHLORIDE 250 ML IV SCH (09:29)
--- NOTE | 2017-06-05 09:51 | HP ---
DATE OF SERVICE: 06/04/17 (SWING BED) CHIEF COMPLAINT: Coughing and shortness of breath HISTORY OF PRESENT ILLNESS: This is a 81-year-old female who came from the skilled nursing. The patient was treated at the skilled nursing for right lower lobe pneumonia and shortness of breath. The patient's condition was getting worse. The patient was transferred to [facility] and did the direct admsission. ABG showed pH of 7.42 , pc02 44.0, p02 48. White count was 10,000. CT of the chest showed multifocal pneumonia. Hemoglobin 9.7, started on Rocephin, Vancomycin and breathing treatment. Solu-Medrol was given. Gradually the patient was more awake and alert with given the IV fluids. The patient really communicates well. Hemoglobin has been steady 9.7, 9.3. ABG was not repeated. BUN and creatinine improved from 35 and 1.3 to 16 and 0.82. Vancomycin trough levels were negative. Repeat chest x-ray was done on the , still showing right lower lobe pneumonia. At this time, the patient is planned for admission to Transitional Care Unit for continuing IV antibiotics and breathing treatment. REVIEW OF SYSTEMS: CONSTITUTIONAL: No fever, no chills. Weakness and tiredness. HEENT: Normal. ENDOCRINE: No weight gain; no weight loss. CVS: No chest pain. No PND, no orthopnea. No shortness of breath. No PND, no orthopnea. RESPIRATORY: Cough, Congestion. No hemoptysis. GI: No nausea, no vomiting. No abdominal pain. No melena. : No hematuria. No polyuria. MUSCULOSKELETAL Some aches and pains. PSYCHIATRIC: Not anxious. No depression. No suicidal thoughts. No homicidal thoughts. SKIN: Intact, no open lesions. PAST MEDICAL HISTORY: CAD Hypotension Dyslipidemia Alzheimer's Dementia Parkinson's Disease History of pneumonia Hysterectomy Osteoarthritis Bipolar Depression PAST SURGICAL HISTORY: Hysterectomy Cholecystectomy Left hip replacement Appendectomy Cataracts PERSONAL HISTORY: The lives in the skilled nursing and partially dependant upon the ADL's. Family history is significant for the dementia, hypertension, colon cancer. MEDICATIONS: Tramadol Timoptic Miralax Milk of magnesia Tylenol Synthroid Restasis Clorazepate Aspirin Amantadine Multivitamin Verapamil Keflex Zofran Gabapentin Seroquel DUO NEBS Cetirizine Ferrous Sulfate ALLERGIES: Codeine Modafinil Penicillin PHYSICAL EXAMINATION: V/S: Blood pressure 89/57, respiratory rate 20, heart rate 59, temperature 97.7 , saturation 98 on 2 liters. HEENT: Atraumatic, normocephalic. No scleral icterus. Mucosa dry. NECK: Supple. No JVD, no bruit. No lymphadenopathy. No thyromegaly. HEART: S1, S2 normal. No murmur. No cyanosis or clubbing. No ascites. LUNGS: Decreased and basilar crackles, right more than left.. Clear to auscultation. No rales or rhonchi. ABDOMEN: Soft, nontender. Bowel sounds are active. No CVA tenderness. No rigidity or guarding. EXTREMITIES: No pedal edema. No cyanosis or clubbing MUSCULOSKELETAL: Normal joints, no swelling. NEUROLOGIC: The patient is awake, alert. SKIN: Intact; no open lesions. LYMPHATIC: No lymph nodes palpable. LAB: White count 9.5, hemoglobin 9.3, hematocrit 29.4, platelet count 340. Sodium 139 , potassium 4.6, chloride 100, bicarb 31, BUN 16, creatinine 0.82, glucose 90. ASSESSMENT: 1. FACILITY ACQUIRED PNEUMONIA, INITIALLY MULTIFOCAL NOW IS RIGHT LOWER LOBE PNEUMONIA 2. HISTORY OF ANEMIA 3. HYPERTENSION 4. DYSLIPIDEMIA 5. OSTEOARTHRITIS 6. PARKINSONISM 7. HISTORY OF BRAIN TUMOR WITH CRANIOTOMY 8. APPENDECTOMY PLAN: 1. Admit patient to Transitional Care Unit 2. Duonebs 3. Rocephin 4. Vancomycin 5. Daily I & O's 6. CBC, CMP every other day 7. Continue the rest of the medications TIME SPENT: More than 65-70 minutes for admission [facility]
--- NOTE | 2017-06-05 11:17 | RS.PTINEVL ---
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 LATEX ALLERGY?: No Surgical History: Hip Replacement, Cholecystectomy, Hysterectomy Surgical History Comments:: crainiotomy, appey Medications: see chart Subjective Information/ Patient Comments:: pt states she was getting PT at the alf prior to admit. pt's dtr reports they moved the rwx out of her room because she tried to get up on her own. pt states she likes to get up out of bed. - Level of function Prior to this admission, the patient could do the following:: Partially Dependent Ambulation Abilities prior to this admission: pt had assist with ADL's and transfers at the alf. Current Level of Function: Partially Dependent Current Equipment Used at Home: w/c Interventions - Objective Patient Orientation: Person, Place Current Interventions: IV's, Telemetry Range of Motion - ROM Right Upper Extremity AROM: WFL's Left Upper Extremity AROM: WFL's Right Lower Extremity AROM: Moderate limitation (knee ext -50, hip ext also limited) Left Lower Extremity AROM: Moderate limitation (knee ext -20, hip ext also limited) Muscle Strength - Muscle Strength Right Upper Extremity Strength: Mild Weakness (grossly 4-/5) Left Upper Extremity Strength: Mild Weakness (grossly 4-/5) Right Lower Extremity Strength: Mild Weakness (hip flex 3/5, knee flex 4-/5, ext 3-/5, ankle DF/PF 3+/5) Left Lower Extremity Strength: Mild Weakness (hip flex 3/5, knee flex 4-/5, ext 3-/5, ankle DF/PF 3+/5) Sensation - Sensation Right Upper Extremity Sensation: Intact/Normal Left Upper Extremity Sensation: Intact/Normal Right Lower Extremity Sensation: Intact/Normal Left Lower Extremity Sensation: Intact/Normal Palpation Palpation Findings: None/Normal Balance - Sitting Balance and Reactions Static Sitting Balance: Fair Dynamic Sitting Balance: Poor Sitting Equilibrium Reactions: Delayed Left, Delayed Right Sitting Protective Reactions: Absent Left, Absent Right - Standing Balance and Reactions Static Standing Balance: Poor Dynamic Standing Balance: Zero Standing Equilibrium Reactions: Absent Left, Absent Right Standing Protective Reactions: Absent Left, Absent Right - Comments Balance Assessment Comments: pt able to maintain sitting balance unsupported x 2mins while reaching away from midline. pt unable to maintain stand without mod x 2. Functional Mobility - Bed Mobility Rolling R/L: Max Assist, 1 person assist Scooting: Max Assist, 2 person assist Supine to Sit: Mod Assist, Max Assist, 2 person assist - Transfers Sit to Stand: Mod Assist, 2 person assist Stand to Sit: Mod Assist, 2 person assist Stand Pivot Transfers: Mod Assist, Max Assist, 2 person assist Comments:: pt performed stand pivot with mod to max of 2 bed to recliner. - Safety Awareness Safety Awareness: Poor KATHERIN INDEX SCORE: 03/31 Ambulation - Ambulation Ambulation Comments: pt unable to amb this date, pt stood with rwx with mod x 2 , unable to take a step Treatment time - Units charged Exercise: 1 (theract ) - Time with patient Total treatment time: 25 (eval/theract) Patient Education - Education Patient Education: Activity Modification, Education of Plan of Care Teaching Recipient: Patient, Family Teaching Methods: Discussion Comments: discussion with pt and dtr regarding POC and goals. Dtr would like pt to get stronger and improve balance. Assessment - Assessment Problem List:: Decreased level of function, Requires training/education, Decreased safety/Risk of falls, Weakness, Cognitive status limits abilities Rehab Potential: Good Further Therapy Indicated?: Yes Evaluation Complexity: HISTORY: High (alzheimers, parkinsons, OA, bipolar, weakness, ), EXAM OF BODY SYSTEMS: Medium (balance, transfers, strength, ROM), CLINICAL PRESENTATION: Medium (evolving), CLINICAL DECISION MAKING: Medium Short Term Goals GOAL #1: pt roll with bed rails with min x 1 Goal to be met by: 06/11/17 GOAL #2: pt transfer sup to/from sit with mod x 1 Goal to be met by: 06/11/17 GOAL #3: sit to/from stand min to mod x 2 Goal to be met by: 06/11/17 GOAL #4: Transfer bed to/from chair with min to mod x 2 Goal to be met by: 06/11/17 GOAL #5: pt able to sit at side of bed unsupported x 5 mins with min challenges Goal to be met by: 06/11/17 [employer] Roller [employer]ter Goals GOAL #1: pt transfer sup to/from sit minx 1, sit to/from stand min to mod x Goal to be met by: 06/18/17 GOAL #2: pt transfer bed to/from chair with min x 2 Goal to be met by: 06/18/17 GOAL #3: stand at bedside w rwx w min x 2 to allow for pressure relief and hygiene Goal to be met by: 06/18/17 Plan Plan of Care: Therapeutic EX, Therapeutic Activity Other:: progress to gait if appropriate Frequency of Treatment: 1-2 X day, as tolerated Duration of Treatment: 2 Weeks Anticipated Discharge Dest[facility]: [facility] Treatment Diagnosis (ICD 10 Codes): R26.81 balance impaired/unsteady, M62.81 muscle weakness Has the Physician been added for Co-signature?: Yes
--- NOTE | 2017-06-05 11:17 | RS.OTINEVL ---
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 LATEX ALLERGY?: No Surgical History: Hip Replacement, Cholecystectomy, Hysterectomy Surgical History Comments:: crainiotomy, appey Medications: see chart Subjective Information/ Patient Comments:: "I thank you for helping me." - Level of function Prior to this admission, the patient could do the following:: Partially Dependent Ambulation Current Equipment Used at Home: w/c Pain Assessment - Pain Pain Score: 0 Interventions - Objective Patient Orientation: Person, Place Current Interventions: IV's, Telemetry Observation: Pt has hip contractures and knee contractures. Interventions - ROM Right Upper Extremity AROM: Slight limitation Left Upper Extremity AROM: Slight limitation - Strength Right Upper Extremity Strength: Mild Weakness Left Upper Extremity Strength: Mild Weakness - Sensation Right Upper Extremity Sensation: Intact/Normal Left Upper Extremity Sensation: Intact/Normal Balance - Sitting Balance Static Sitting Balance: Fair Dynamic Sitting Balance: Fair - Standing Balance Static Standing Balance: Poor Dynamic Standing Balance: Poor ADL Skills - Self Feeding Self Feeding: Supervision - Grooming Grooming: Supervision - Bathing Bathing UE: Min Assist Bathing LE: Max Assist - Dressing Dressing UE: Min Assist Dressing LE: Max Assist - Toilet Management Toileting Management: Max Assist Functional Mobility - Bed Mobility Rolling R/L: Min Assist Scooting: Mod Assist Supine to Sit: Min Assist Sit to Supine: Min Assist - Transfers Sit to Stand: Mod Assist, 2 person assist Stand to Sit: Mod Assist, 2 person assist Stand Pivot Transfers: Max Assist, 2 person assist - Ambulation Weight Bearing Status: FWB Assistance needed with Ambulation: Max Assist, 2 person assist KATHERIN INDEX SCORE: 2 Additional Treatment Performed - Additional units charged ADL: 16 - Time with patient Total treatment time: 33 Activities Patient Interests:: Watching Television, Visiting/Socializing Patient Education Patient Education: Education of diagnosis, Education of Plan of Care Teaching Recipient: Patient Teaching Methods: Discussion, Demonstration Assessment Problem List:: Decreased level of function, Requires training/education, Decreased safety/Risk of falls, Weakness Rehab Potential: Good Further Therapy Indicated?: Yes Evaluation Complexity: HISTORY: High, EXAM OF BODY SYSTEMS: High, CLINICAL DECISION MAKING: High Short Term Goals - Goals GOAL 1: Pt to complete sitting EOB and combing hair with setup. Goal to be met by: 06/11/17 GOAL 2: Pt to complete self feeding CGA. GOAL 3: Pt to tolerate 15 minutes of activity sitting EOB. [employer] Goals Goal to be met by: 06/16/17 GOAL 2: Pt to complete self feeding independently sitting EOB. Goal to be met by: 06/17/17 GOAL 3: Pt to sit EOB for 20 minutes with rests PRN. Goal to be met by: 06/17/17 Plan Plan of Care: Therapeutic EX, Neuromuscular Re-Educ, Therapeutic Activity, Self- Care/Home Management Frequency of Treatment: 1-2 X day, as tolerated Duration of Treatment: 2 Weeks Anticipated Discharge Destination: [facility] Treatment Diagnosis (ICD 10 Codes): M62.81 Has the Physician been added for Co-signature?: Yes
[2017-06-05] MEDS: SEROQUEL PO SCH (15:19)
[2017-06-06] MEDS: DUONEB NEB SCH ×4 (05:15→19:25)
[2017-06-06] MEDS: SYNTHROID PO SCH (05:30)
[2017-06-06] MEDS: ROCEPHIN 1 GM in SODIUM CHLORIDE 50 ML IV SCH (09:37)
[2017-06-06] MEDS: VANCOMYCIN 750 MG in SODIUM CHLORIDE 250 ML IV SCH (10:39)
[2017-06-06] MEDS: NON-FORMULARY MEDICATION (Cyclosporine 1 EACH) OP SCH ×2 (12:47→21:15)
[2017-06-06] MEDS: CALAN SR PO SCH (12:47)
[2017-06-06] MEDS: CARDIZEM PO SCH ×2 (12:47→21:15)
[2017-06-06] MEDS: ASPIRIN CHEWABLE PO SCH (12:47)
[2017-06-06] MEDS: MILK OF MAGNESIA PO SCH (12:48)
[2017-06-06] MEDS: DIFLUCAN PO SCH (12:48)
[2017-06-06] MEDS: FERROUS SULFATE PO SCH ×2 (12:48→21:15)
[2017-06-06] MEDS: MULTIVITAMIN TABLET PO SCH (12:49)
[2017-06-06] MEDS: TIMOPTIC 0.5% OPTH OP SCH (12:49)
[2017-06-06] MEDS: MIRALAX PO SCH (12:49)
[2017-06-06] MEDS: SYMMETREL PO SCH (12:49)
[2017-06-06] MEDS: NEURONTIN PO SCH ×2 (12:49→21:15)
[2017-06-06] MEDS: ULTRAM PO SCH ×3 (12:50→21:15)
[2017-06-06] MEDS: VALIUM PO SCH ×2 (12:50→21:14)
[2017-06-06] MEDS: ZYRTEC PO SCH (12:50)
[2017-06-07] MEDS: DUONEB NEB SCH ×4 (05:06→20:00)
[2017-06-07] MEDS: SYNTHROID PO SCH (05:34)
[2017-06-07] MEDS: ROCEPHIN 1 GM in SODIUM CHLORIDE 50 ML IV SCH (09:01)
[2017-06-07] MEDS: ULTRAM PO SCH ×3 (09:02→21:05)
[2017-06-07] MEDS: MILK OF MAGNESIA PO SCH (09:02)
[2017-06-07] MEDS: ASPIRIN CHEWABLE PO SCH (09:02)
[2017-06-07] MEDS: TIMOPTIC 0.5% OPTH OP SCH (09:02)
[2017-06-07] MEDS: ZYRTEC PO SCH (09:02)
[2017-06-07] MEDS: SYMMETREL PO SCH (09:02)
[2017-06-07] MEDS: NEURONTIN PO SCH ×2 (09:02→21:05)
[2017-06-07] MEDS: FERROUS SULFATE PO SCH ×2 (09:02→21:05)
[2017-06-07] MEDS: CARDIZEM PO SCH ×2 (09:03→21:05)
[2017-06-07] MEDS: MULTIVITAMIN TABLET PO SCH (09:03)
[2017-06-07] MEDS: MIRALAX PO SCH (09:03)
[2017-06-07] MEDS: SEROQUEL PO SCH (09:03)
[2017-06-07] MEDS: VALIUM PO SCH ×2 (09:03→21:05)
[2017-06-07] MEDS: DIFLUCAN PO SCH (09:03)
[2017-06-07] MEDS: CALAN SR PO SCH (09:03)
[2017-06-07] MEDS: NON-FORMULARY MEDICATION (Cyclosporine 1 EACH) OP SCH ×2 (09:04→21:06)
[2017-06-07] MEDS: VANCOMYCIN 750 MG in SODIUM CHLORIDE 250 ML IV SCH (10:00)
[2017-06-08] MEDS: DUONEB NEB SCH ×3 (05:09→15:50)
[2017-06-08] MEDS: SYNTHROID PO SCH (05:48)
[2017-06-08 05:51] VITALS: BP 96/50; TEMP 98
[2017-06-08] MEDS: ASPIRIN CHEWABLE PO SCH (10:41)
[2017-06-08] MEDS: CARDIZEM PO SCH (10:42)
[2017-06-08] MEDS: SYMMETREL PO SCH (10:42)
[2017-06-08] MEDS: VALIUM PO SCH (10:42)
[2017-06-08] MEDS: DIFLUCAN PO SCH (10:42)
[2017-06-08] MEDS: NEURONTIN PO SCH (10:42)
[2017-06-08] MEDS: ULTRAM PO SCH (10:42)
[2017-06-08] MEDS: MIRALAX PO SCH (10:43)
[2017-06-08] MEDS: CALAN SR PO SCH (10:43)
[2017-06-08] MEDS: MULTIVITAMIN TABLET PO SCH (10:43)
[2017-06-08] MEDS: MILK OF MAGNESIA PO SCH (10:43)
[2017-06-08] MEDS: FERROUS SULFATE PO SCH (10:43)
[2017-06-08] MEDS: ZYRTEC PO SCH (10:44)
[2017-06-08] MEDS: NON-FORMULARY MEDICATION (Cyclosporine 1 EACH) OP SCH (10:44)
[2017-06-08] MEDS: TIMOPTIC 0.5% OPTH OP SCH (10:46)
[2017-06-08] MEDS ORDERED: ROCEPHIN ONE (11:18)
[2017-06-08] MEDS ORDERED: SODIUM CHLORIDE 50 ML IV ONE (11:23)
[2017-06-08] MEDS: ROCEPHIN 1 GM in SODIUM CHLORIDE 50 ML IV SCH (11:23)
[2017-06-08] MEDS: VANCOMYCIN 750 MG in SODIUM CHLORIDE 250 ML IV SCH (12:28)
--- NOTE | 2017-06-08 12:38 | DI ---
EXAM: Chest one view, frontal view only. HISTORY: Pneumonia. COMPARISON: 06/02/2017. FINDINGS: Right midlung and right basilar consolidation appears unchanged. There is some improved a eration in the left perihilar region. Small nodular densities seen throughout remainder of the lungs . No new areas of consolidation seen. No pleural effusion or pneumothorax identified. Heart size i s normal. Clips seen in the upper abdomen. IMPRESSION: Improved aeration in the left perihilar region. Otherwise stable multifocal right lung consolidation and scattered nodular densities. Continued follow-up is recommended.
--- NOTE | 2017-06-19 15:28 | PN ---
DATE OF SERVICE: 06/05/17 SUBJECTIVE: Admitted for IV antibiotics and right lower lobe pneumonia. The patient is more awake and alert, still coughing with congestion. The patient's daughter is in the room. REVIEW OF SYSTEMS: CONSTITUTIONAL: No fever, no chills. HEENT: Normal. ENDOCRINE: No weight gain, no weight loss. CVS: No angina symptoms. No CHF symptoms. No palpitations. No atypical chest pain for CAD. No shortness of breath. No PND, no orthopnea. RESPIRATORY: Cough and congestion. No hemoptysis. GI: No nausea, no vomiting. No abdominal pain. : No hematuria. No polyuria. MUSCULOSKELETAL: No joint swelling. PSYCHIATRIC: Not anxious. No depression. No suicidal thoughts. No homicidal thoughts. SKIN: Intact. No rash. PHYSICAL EXAMINATION: V/S: BP 130/66, respiratory rate 16, heart rate 64, temperature 97.8, saturation 91 on 2L. HEENT: Normocephalic, atraumatic. Mucosa dry. Pallor positive. No icterus. NECK: Supple. No JVD, no carotid bruit. No lymphadenopathy. LUNGS: Decreased with basilar crackles. HEART: S1, S2 normal. No S3. No murmur, gallop or regurgitation. ABDOMEN: Soft, nontender. Bowel sounds active. No rigidity. No rebound or guarding. No CVA tenderness. EXTREMITIES: No cyanosis, clubbing or pedal edema. MUSCULOSKELETAL: No joint swelling. NEUROLOGIC: Awake, alert. No focal deficit. LYMPHATIC: No lymph nodes palpable. SKIN: Intact. LABS: White count 7.22, hematocrit 10.1, hemoglobin 32.2, platelet count 354. Sodium 139, potassium 4.3, chloride 99, bicarb 32, BUN 18, creatinine 0.90, glucos 90. ASSESSMENT: 1. INITIALLY BIBASILAR PNEUMONIA, NOW RIGHT LOWER LOBE PNEUMONIA FOR ANTIBIOTICS 2. STATUS POST CHANGE IN MENTAL STATUS, RIGHT NOW NOT IMPROVED 3. STATUS POST HYPOXEMIC RESPIRATORY FAILURE, NOW BETTER 4. HISTORY OF CRANIOTOMY WITH BRAIN TUMOR 5. CAD 6. HYPERTENSION 7. PARKINSON'S DISEASE 8. OSTEOARTHRITIS PLAN: 1. Rocephin 1 gm daily 2. Vancomycin 3. Duonebs 4. Daily I & O TIME SPENT: More than 35 minutes MTDD
--- NOTE | 2017-06-19 15:48 | PN ---
DATE OF SERVICE: 06/06/17 SUBJECTIVE: The patient is transitional care unit for right basilar pneumonia, no right lower lobe pneumonia. Coughing is better. The patient is up and about talking. The patient talks good. The patient is not disoriented. Sometimes the patient has episodes. REVIEW OF SYSTEMS: CONSTITUTIONAL: No fever, no chills. HEENT: Normal. ENDOCRINE: No weight gain, no weight loss. CVS: No angina symptoms. No CHF symptoms. No palpitations. No atypical chest pain for CAD. No shortness of breath. No PND, no orthopnea. RESPIRATORY: No cough, no hemoptysis. GI: No nausea, no vomiting. No abdominal pain. : No hematuria. No polyuria. MUSCULOSKELETAL: No joint swelling. PSYCHIATRIC: Not anxious. No depression. No suicidal thoughts. No homicidal thoughts. SKIN: Intact. No rash. PHYSICAL EXAMINATION: V/S: BP 107/62, respiratory rate 16, heart rate 75, temperature 97.5, saturation 92 on room air. HEENT: Normocephalic, atraumatic. Mucosa dry. NECK: Supple. No JVD, no carotid bruit. No lymphadenopathy. LUNGS: Decreased with basilar crackles. No rales or rhonchi. HEART: S1, S2 normal. No S3. No murmur, gallop or regurgitation. ABDOMEN: Soft, nontender. Bowel sounds active. No rigidity. No rebound or guarding. No CVA tenderness. EXTREMITIES: No cyanosis, clubbing or pedal edema. MUSCULOSKELETAL: No joint swelling. NEUROLOGIC: Awake, alert, oriented times three. No focal deficit. LYMPHATIC: No lymph nodes palpable. SKIN: Intact. LABS: White count 7.22, hemoglobin 10.1, hematocrit 32.2, platelet count 354. Sodium 139, potassium 4.3, chloride 99, bicarb 32, BUN 18, creatinine 0.90, glucose 99. ASSESSMENT: 1. RIGHT LOWER LOBE PNEUMONIA NEEDING IV ANTIBIOTICS 2. HYPERTENSION 3. DYSLIPIDEMIA 4. HISTORY OF BRAIN TUMOR WITH CRANIOTOMY 5. DYSLIPIDEMIA 6. PARKINSONISM 7. ALZHEIMER'S DEMENTIA PLAN: 1. Continue Rocephin 1 gm daily 2. Duonebs 3. Tylenol p.r.n. 4. Vancomycin 5. Daily I & O's TIME SPENT: More than 30 minutes MTDD
--- NOTE | 2017-06-23 14:53 | PN ---
DATE OF SERVICE: 06/07/17 SUBJECTIVE: The patient's daughter is at the bedside. The patient is more awake, more perkier. REVIEW OF SYSTEMS: CONSTITUTIONAL: No fever, no chills. HEENT: Normal. ENDOCRINE: No weight gain, no weight loss. CVS: No angina symptoms. No CHF symptoms. No palpitations. No atypical chest pain for CAD. No shortness of breath. No PND, no orthopnea. RESPIRATORY: No cough, no hemoptysis. GI: No nausea, no vomiting. No abdominal pain. : No hematuria. No polyuria. MUSCULOSKELETAL: No joint swelling. PSYCHIATRIC: Not anxious. No depression. No suicidal thoughts. No homicidal thoughts. SKIN: Intact. No rash. PHYSICAL EXAMINATION: V/S: Blood pressure 130/66, respiratory rate 16, heart rate 64, temperature 97.8 with saturation 91% on 2 liters. HEENT: Normocephalic, atraumatic. Mucosa dry. NECK: Supple. No JVD, no carotid bruit. No lymphadenopathy. LUNGS: Decreased and basilar crackles. Clear to auscultation. No rales or rhonchi. HEART: S1, S2 normal. No S3. No murmur, gallop or regurgitation. ABDOMEN: Soft, nontender. Bowel sounds active. No rigidity. No rebound or guarding. No CVA tenderness. EXTREMITIES: No cyanosis, clubbing or pedal edema. MUSCULOSKELETAL: No joint swelling. NEUROLOGIC: Awake, alert, oriented times three. No focal deficit. LYMPHATIC: No lymph nodes palpable. SKIN: Intact. LABS: Sodium 139, potassium 4.3, chloride 99, bicarb 52, BUN 18, creatinine 0.90, WBC 7.22, hgb 10.1, hct 32.2, plt count 354. ASSESSMENT: 1. Initially bibasilar pneumonia but right now it is right lower lobe pneumonia , getting IV antibiotics 2. Hypertension 3. Dyslipidemia 4. Alzheimer's Dementia 5. Parkinson's disease PLAN: 1. Continue the IV antibiotics Vancomycin and DUO NEBS 2. Daily I&O's 3. Will recheck the chest x-ray in the morning 4. If there is improvement the patient will most likely be discharged back to [facility]. TIME SPENT: More than 35 minutes MTDD
== END 2017-06-08 13:45 | disposition home or self-care (01) | DRG 189 ==
LOC: MEDSURG B 16:14
PROVIDERS: ADMIT Emergency Medicine; ATTEND Emergency Medicine
DX: J96.01 Acute respiratory failure with hypoxia (principal); J44.1 Chronic obstructive pulmonary disease with (acute) exacerbation; N17.9 Acute kidney failure, unspecified; Y95 Nosocomial condition; G30.1 Alzheimer's disease with late onset; I10 Essential (primary) hypertension; D64.9 Anemia, unspecified; I12.9 Hypertensive chronic kidney disease with stage 1 through stage 4 chronic kidney disease, or unspecified chronic kidney disease; N18.9 Chronic kidney disease, unspecified; G20 Parkinson's disease; R41.82 Altered mental status, unspecified; E86.0 Dehydration; D33.2 Benign neoplasm of brain, unspecified; E78.5 Hyperlipidemia, unspecified; F02.80 Dementia in other diseases classified elsewhere, unspecified severity, without behavioral disturbance, psychotic disturbance, mood disturbance, and anxiety; K59.00 Constipation, unspecified; M19.90 Unspecified osteoarthritis, unspecified site; F31.9 Bipolar disorder, unspecified; F41.8 Other specified anxiety disorders; Z87.01 Personal history of pneumonia (recurrent); Z98.890 Other specified postprocedural states; Z79.899 Other long term (current) drug therapy
CPT/HCPCS: 36415; 80053; 80202; 85025; 94640; 97802; 99306; 99309; 99310; 99316